=== PATIENT | female | born 1990 | race Caucasian/White ===

== ENCOUNTER 2018-07-09 09:13 | Outpatient (CLI) | payer MEDICAID, SELFPAY ==
[2018-07-09 09:57] LABS: Hemoglobin A1C 5.5 % (4.5-6.2)
[2018-07-09 10:34] LABS: ALT 18 U/L (12-78); AST 13 U/L (15-37); Albumin 3.6 g/dL (3.4-5.0); Alkaline Phosphatase 45 U/L (46-116); Anion Gap 10.3 mmol/L (3-11); BUN 9 mg/dL (7-18); Bilirubin, Direct 0.12 mg/dL (0.00-0.20); Bilirubin, Total 0.5 mg/dL (0.2-1.0); CO2 23.7 mmol/L (21.0-32.0); CREATININE 0.55 mg/dL (0.55-1.02); Calcium 8.9 mg/dL (8.5-10.1); Chloride 105 mmol/L (98-107); Glucose 96 mg/dL (70-100); Potassium 4.1 mmol/L (3.5-5.1); Sodium 139 mmol/L (136-145); Total Protein 7.1 g/dL (6.4-8.2)
[2018-07-09 10:46] LABS: Cholesterol 160 mg/dL (50-200); HDL Cholesterol 39 mg/dL (40-60); LDL CHOLESTEROL 101 mg/dL (<100); Triglyceride 78 mg/dL (30-150)
== END 2018-07-09 09:33 ==
PROVIDERS: PCP Family Medicine; Visit Provider Psychiatry & Neurology Child & Adolescent Psychiatry
DX: F71 Moderate intellectual disabilities (principal); Z79.899 Other long term (current) drug therapy; E78.5 Hyperlipidemia, unspecified; R73.9 Hyperglycemia, unspecified
CPT/HCPCS: 36415; 80048; 80061; 80076; 83721; 83036

== ENCOUNTER 2018-10-10 12:32 | Outpatient (REF) | payer MEDICAID, SELFPAY ==
[2018-10-13 13:42] LABS: Chlamydia Result Negative; GC Result Negative; Specimen Description URINE
== END 2018-10-10 12:52 ==
LOC: LBN 12:32
PROVIDERS: PCP Family Medicine; Visit Provider Nurse Practitioner Women's Health
DX: Z11.3 Encounter for screening for infections with a predominantly sexual mode of transmission (principal)
CPT/HCPCS: 87491; 87591

== ENCOUNTER 2019-01-01 10:59 | Outpatient (REF) | payer MEDICAID, SELFPAY | END 2019-01-01 11:19 | LOC: LBN 10:59 | PROVIDERS: PCP Family Medicine; Visit Provider Nurse Practitioner Family | DX: R35.0 Frequency of micturition (principal) | CPT/HCPCS: 87086 ==

== ENCOUNTER 2019-01-12 17:18 | Emergency (ER) | payer MEDICAID, SELFPAY ==
[2019-01-12 17:20] VITALS: BP 117/68; PULSE 83; RESP 16; TEMP 36.2; O2SAT 100
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
--- NOTE | 2019-01-12 17:52 | DI.RAD_ITS ---
SYMPTOM/DIAGNOSIS: TRAUMA, CONTINUED ANKLE PAIN RIGHT ANKLE: Three views. No priors No evidence of an acute or healing fracture or dislocation. The soft tissues are unremarkable. IMPRESSION: Negative examination.
--- NOTE | 2019-01-12 17:59 | ED.GENADUL_ITS ---
Discharge Plan Disposition Patient Disposition: HOME Condition: Stable Discharge Details Chief Complaint: Orthopedic Clinical Impression: Ankle pain Primary Care Provider: Debbie Hickey ED Provider: Laurence Muller Home Meds and New Rx's Prescriptions: Continued sertraline 50 mg Tablet 50 mg PO HS RF: 0 divalproex 500 MG tablet,delayed release (DR/EC) 500 mg PO DAILY RF: 0 risperidone [Risperdal] 1 MG tablet 1 mg PO BID RF: 0 atomoxetine [Strattera] 40 MG capsule 40 mg PO DAILY RF: 0 levonorgestrel-ethinyl estrad [Setlakin] 1 EACH tablets,dose pack,3 month 1 ea PO DAILY RF: 0 guanfacine 2 MG tablet extended release 24 hr 2 mg PO DAILY RF: 0 Discharge Instructions Instructions: Ankle Sprain (ED) Additional Instructions: Please return immediately to the emergency department if you develop any new or worsening symptoms or if you become otherwise concerned. It is extremely important that you make an appointment to be seen as soon as possible in follow- up for this visit by your primary care doctor. Referrals: Debbie Hickey [Primary Care Provider] - Discharge Data Discharge Date/Time-TO BE ENTERED AT DEPARTURE: 01/12/19 18:39 Medical Decision Making Leela Howard is a 28-year-old woman with a history of bipolar who presented to the emergency department complaining of right ankle pain has been persistent since she tripped on stairs 2 to 3 weeks ago. On exam patient is well and nontoxic appearing. Tenderness over the right medial and lateral malleoli without other bony tenderness of the right lower leg or foot, no edema of the lower extremity, no rash or skin changes. Concern for possible fracture versus sprain. Exam/history is not consistent with DVT, compartment syndrome, vascular injury, other acute emergent life/limb threatening pathology. Plan for x-rays. X-rays negative. Plan for Rolando wrap for comfort, patient walking about the emergency department without issue. I had a lengthy discussion with the patient regarding return to emergency department precautions, importance of outpatient follow-up with her PCP, and home care. Patient verbalized understanding of the plan was amenable. All questions were answered. Patient was discharged home with clear plan for outpatient follow-up. Medical Records Medical records reviewed: Yes I reviewed the patient's medical records. Imaging Data Radiologic Study: Attestation: I personally reviewed and interpreted this imaging study as follows: Radiologist's impression: EXAM: XR Right Ankle EXAM DATE/TIME: 01/12/2019 5:53 PM CLINICAL HISTORY: 28 years old, female; Right; Patient HX: Trauma 2 weeks ago, continued ankle pain; Additional info: Per PT: Medial and lateral pain TECHNIQUE: Imaging protocol: XR Right ankle. Views: 3 or more views. COMPARISON: No relevant prior studies available. FINDINGS: Bones/joints: No fracture or subluxation. Joints are well aligned. Soft tissues: Normal. IMPRESSION: No acute findings. HPI General Mode of arrival: ambulatory . Date/Time Provider Initiated Documentation: 01/12/19 17:23 . Limitations to Documentation: no limitations . Information obtained by: patient, RN notes reviewed and old records reviewed . HPI Narrative: Leela Howard is a 28-year-old woman with history of bipolar presenting to the emergency department with ankle pain. Patient reports that 2 or 3 weeks ago she was walking upstairs when she tripped and inverted her ankle. She reports that she has been having pain to the outside of her right ankle since the time of the injury, and has been walking with a limp. Patient reports that she did not seek medical care at the time, but came to the emergency department today because her pain seemed to be increasing. She denies any other injury at the time of the trauma, did not hit her head, no loss of consciousness. Patient reports that other than ankle pain that she has been feeling very well in her usual state of health. She denies any other symptoms. Has been eating and drinking as usual. Patient reports all of her pain is located over the medial and lateral malleoli of the right ankle. There is no other leg or foot pain. No skin wounds or skin changes. No edema. Related Data Home Medications Medication Instructions Recorded Confirmed atomoxetine [Strattera] 40 mg PO DAILY 01/27/18 01/12/19 divalproex 500 mg PO DAILY 01/27/18 01/12/19 guanfacine 2 mg PO DAILY 01/27/18 01/12/19 levonorgestrel-ethinyl estrad 1 ea PO DAILY 01/27/18 01/12/19 [Setlakin] risperidone [Risperdal] 1 mg PO BID 01/27/18 01/12/19 sertraline 50 mg PO HS 01/12/19 01/12/19 Allergies Allergy/AdvReac Type Severity Reaction Status Date / Time No Known Allergies Allergy Unverified 01/12/19 17:25 General Stated Complaint: Orthopedic GREGORIA: 4 Review of Systems Review of Systems Constitutional: denies fevers Eyes: denies eye pain ENT: denies facial pain, dental pain, sore throat Cardiovascular: denies chest pain, edema Respiratory: denies SOB, cough GI: denies abdominal pain, vomiting, diarrhea : denies flank pain MSK: denies back pain, neck pain, myalgias, reports right ankle pain Skin: denies rash, wound Neuro: denies headaches, numbness, weakness PFSH Medical History Bipolar 1 disorder (Acute 02/04/18) Contraception (Acute 02/04/18) Family History Mother No problems noted. Father No problems noted. Social History Smoking/Tobacco Use Status: Never Alcohol Intake: never Substance use type: does not use Do you feel safe in your relationship?: Yes Female Reproductive History Menstrual control method: pills Exam Narrative Exam Narrative: Constitutional: well and gff-gyqij-lqbzbizpp, pleasant, conversing normally HENT: head atraumatic/normocephalic/normal inspection, mucous membranes moist Eyes: conjunctiva normal, sclera normal, pupils 3mm b/l Neck: no stridor, normal ROM, trachea midline Resp: normal work of breathing Cardio: normal rate, normal rhythm Skin: warm, dry, normal color, no rash Neuro: alert, not altered, grossly non-focal, normal tone Ext: right ankle tender to palpation over medial and lateral malleoli, no tenderness of the proximal tibia or fibula, no posterior calf tenderness, able to range ankle though with some pain, no edema to the foot, ankle, or lower leg, heel, metatarsals nontender to palpation, DP pulse intact, brisk cap refill of the toes, normal sensation of the foot Psych: normal mood, normal affect, normal behavior Course Vital Signs Temperature 36.2 C L 01/12/19 17:20 Pulse 83 01/12/19 17:20 Respiratory Rate 16 01/12/19 17:20 Blood Pressure 117/68 01/12/19 17:20 Pulse Oximetry 100 05/27/19 17:20 Temperature 36.2 C L 01/12/19 17:20 Temperature Source Skin 01/12/19 17:20 Pulse 83 01/12/19 17:20 Respiratory Rate 16 01/12/19 17:20 Blood Pressure 117/68 01/12/19 17:20 Pulse Oximetry 100 01/12/19 17:20 Pain Level 9 01/12/19 17:20
--- NOTE | 2019-01-12 18:18 | DI.VRAD_ITS ---
EXAM: XR Right Ankle EXAM DATE/TIME: 01/12/2019 5:53 PM CLINICAL HISTORY: 28 years old, female; Right; Patient HX: Trauma 2 weeks ago, continued ankle pain; Additional info: Per PT: Medial and lateral pain TECHNIQUE: Imaging protocol: XR Right ankle. Views: 3 or more views. COMPARISON: No relevant prior studies available. FINDINGS: Bones/joints: No fracture or subluxation. Joints are well aligned. Soft tissues: Normal. IMPRESSION: No acute findings. Dictated and Authenticated by: Derrick Urbano MD. Ordering:CALVIN Dang MD
== END 2019-01-12 18:39 | disposition home or self-care (01) ==
PROVIDERS: Emergency Provider Student in an Organized Health Care Education/Training Program; PCP Family Medicine
DX: M25.571 Pain in right ankle and joints of right foot (principal)
CPT/HCPCS: 99283; 73610; 99282

== ENCOUNTER 2019-01-18 19:37 | Emergency (ER) | payer MEDICAID, SELFPAY ==
[2019-01-18 19:47] VITALS: BP 132/87; PULSE 90; RESP 18; TEMP 36.5; O2SAT 100
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
[2019-01-18 22:26] VITALS: BP 130/79; PULSE 98; RESP 18; TEMP 36.5; O2SAT 98
== END 2019-01-18 22:25 | disposition home or self-care (01) ==
PROVIDERS: Emergency Provider Physician Assistant; PCP Family Medicine
DX: F91.8 Other conduct disorders (principal); F31.9 Bipolar disorder, unspecified
CPT/HCPCS: 99284

== ENCOUNTER 2019-01-19 09:53 | Emergency (ER) | payer MEDICAID, SELFPAY ==
[2019-01-19 10:11] VITALS: BP 127/75; PULSE 85; RESP 20; TEMP 36.8; O2SAT 97
[2019-01-19 10:39] LABS: Bilirubin Negative (Negative); Blood Small (Negative); Clarity Clear; Glucose Negative (Negative); Ketones Trace mg/dL (Negative); Leukocyte Esterase Trace (Negative); Nitrite Negative (Negative); Specific Gravity 1.015 (1.005-1.025)
--- NOTE | 2019-01-19 10:52 | ED.GENADUL_ITS ---
Discharge Plan Disposition Patient Disposition: HOME Condition: Stable Discharge Details Chief Complaint: PsychEval Clinical Impression: Violent behavior, Finger pain, right Primary Care Provider: Debbie Hickey ED Provider: Melvin Schmidt Home Meds and New Rx's Prescriptions: Continued Nexplanon 68 mg implant 1 implant SBD ONCE Qty: 1 RF: 0 sertraline 50 mg Tablet 50 mg PO HS RF: 0 divalproex 500 MG tablet,delayed release (DR/EC) 500 mg PO DAILY RF: 0 risperidone [Risperdal] 1 MG tablet 1 mg PO BID RF: 0 atomoxetine [Strattera] 40 MG capsule 60 mg PO DAILY RF: 0 guanfacine 2 MG tablet extended release 24 hr 2 mg PO DAILY RF: 0 Discharge Instructions Additional Instructions: Please route return immediately to the emergency department if your child develo ps any new or worsening symptoms or if you become otherwise concerned. It is extremely important that you make an appointment for your child to be seen as soon as possible in follow-up for this visit by her psychiatrist and also by her primary care doctor. Your x-ray did not show any fracture. May stacy tape for comfort 3 to 5 days time. Apply ice to reduce discomfort Referrals: Debbie Hickey [Primary Care Provider] - Discharge Data Discharge Date/Time-TO BE ENTERED AT DEPARTURE: 01/19/19 17:19 Medical Decision Making <Laurence Muller MD - Last Filed: 01/20/19 20:52> Leela Howard is a 28-year-old woman with a history of bipolar disorder who presented to the emergency department after being evaluated last night, kervin for safety, and then throwing a chair at home . On exam patient is well and nontoxic appearing. She has somewhat pressured speech, alert and oriented x3, does give a different report of events as compared to her case management coordinator, denies throwing objects at staff. No SI or HI. Exam/history is not consistent with acute nonpsychiatric life-threatening medical pathology. I have concern that patient is a risk to her staff workers based on the report of her case management coordinator, and that she requires psychiatric evaluation. Plan for UA, urine preg, mental health eval, CPSO. Message left for patient's guardian to call back. Upreg neg per nursing. It is unclear to mental health worker whether patient's actions are behavioral versus psychiatric. At this time this delineation is unclear as we have not been able to reach the patient's guardian. Plan for patient to possibly go to [facility], which at this time I believe would be appropriate as she would receive psychiatric evaluation in their care. We have been unable to contact the patient's guardian. We will continue to monitor. director of product development have been attempting to call patient's guardian without success. Pt has been calm and cooperative, no complaints on reassessment. I spoke with Pt's mother over the phone, who is her guardian and makes all decisions for Pt. I relayed my concern that patient is possibly a risk to herself and to [facility] staff, given patient breaking multiple windows, patient throwing heavy objects at staff. Mom states that she would potentially consent to patient going to a [facility] facility, but she does not consent for patient to go to [place], and would prefer that she remain at home. Per mental health, the [facility] does not accept patient given her violent behavior. Per mental health team, likely the only inpatient facility that would accept patient is [place], which mom does not give her consent for. Given unclear nature of disposition, Aparna Randolph involved, who is in the ED assisting with coordinating the plan. Patient's case management coordinator now with plan for patient to go home with more staff members. They state that [facility] feels comfortable with this solution at this time, that staff is trained to handle violent behavior, and with more staff on hand this is the most appropriate disposition for the patient at this time. Patient's mother now present in the emergency department. I had a lengthy discussion with the patient's mother in the presence of patient's case management coordinator, and we discussed plan for patient to go home with more staff members. Patient's mom agrees with this plan, and feels comfortable with having further psychiatric assessment performed in the outpatient setting. Prior to discharge the usual return to emergency department precautions were discussed. Patient was discharged to home with clear plan for outpatient follow-up. All questions were answered. Prior to discharge, Pt noted that she had punched a wall two days ago, and has pain in her right 4th digit. On exam there is dorsal and volar ecchymosis and TTP over the PIP with superficial healing abrasion. No edema. FDS, FDP, and extensor function intact, FROM. Brisk cap refill, normal distal sensation. Hand otherwise atraumatic. Concern for contusion vs less likely fx. Tetanus <5 yrs ago. Plan for xray. Pt signed out to Dr. Schmidt at time of shift change with xray pending. Medical Records Medical records reviewed: Yes I reviewed the patient's medical records. Lab Data Lab results reviewed: Yes I reviewed the patient's lab results. Laboratory Tests Range/Units 01/19/19 01/19/19 10:25 10:25 Urine Color (Yellow) Yellow Urine Clarity Clear Urine pH (5-8) 7.0 Ur Specific [place] (1.005-1.025) 1.015 Urine Protein (Negative) mg/dL Negative Urine Ketones (Negative) mg/dL Trace H Urine Blood (Negative) Small H Urine Nitrite (Negative) Negative Urine Bilirubin (Negative) Negative Urine Urobilinogen (Up TO 0.2) EU/dL 1.0 H Ur Leukocyte Esterase (Negative) Trace H Urine RBC (0-2) 10-20 H Urine WBC (0-5) HPF 3-5 Ur Epithelial Cells (Negative) HPF Moderate Urine Crystals (Negative) HPF Negative Urine Bacteria (Negative) HPF Few Urine Casts (Negative) LPF Negative Urine Mucus (Negative) Negative Urine Other (Negative) Few renal Ur Culture Indicated? No/sq. contamination Urine Glucose (Negative) mg/dL Negative Urine Opiates Screen (Negative) Negative Urine Methadone Screen (Negative) Negative Ur Barbiturates Screen (Negative) Negative Ur Tricyclics Screen (Negative) Negative Ur Amphetamines Screen (Negative) Negative U Benzodiazepines Scrn (Negative) Negative Urine Cocaine Screen (Negative) Negative Ur THC Screen (Negative) Negative <Melvin Schmidt MD - Last Filed: 01/19/19 17:23> X-ray negative for acute fracture. Patient stable for discharge as previous plan. HPI <Laurence Muller MD - Last Filed: 01/20/19 20:52> General Mode of arrival: ambulatory . Date/Time Provider Initiated Documentation: 01/19/19 10:22 . Limitations to Documentation: no limitations . Information obtained by: patient, RN notes reviewed and old records reviewed . HPI Narrative: Leela Howard is a 28-year-old woman with history of bipolar disorder brought to the emergency department by her case management coordinator. The patient reports that she feels that her ex-boyfriend's mother is threatening her life, and has been telling her that she needs to harm herself and commit suicidal acts. The patient reports that she feels that her ex-boyfriend's mother encouraged her to harm herself in the past. Patient reports that she is very upset about this, but otherwise has no symptoms. She denies pain, fevers, suicidality, homicidality, any ingestion or attempt to harm herself. I spoke with the patient alone with nurse observing from outside the room . Patient is under the care of of [facility], and her guardian is her mother. I also discussed the patient with her case management coordinator that brought her to the emergency department today. They report that patient has not been in contact with her ex- boyfriend or with her ex-boyfriend's mother over the past 3 weeks, as she is not allowed to use the phone to contact them.. Over the past 3 weeks patient has had escalating dangerous behavior. They state that she has thrown chairs and other heavy objects including grates from the stove across the room. They report that she has broken several windows in the house. They state that she has been threatening staff (patient has 24/7 care providers to keep her safe). Patient was seen here last night for same and discharged home after patient contracted for safety. They report that since her discharge, patient again through a chair across the room. They state that patient is violent, threatening staff and they are having difficulty managing her in her home. Unclear if there have been recent med changes. Message left for mom to call back (Pt's guardian). Related Data Home Medications Medication Instructions Recorded Confirmed atomoxetine [Strattera] 60 mg PO DAILY 01/27/18 01/19/19 divalproex 500 mg PO DAILY 01/27/18 01/19/19 guanfacine 2 mg PO DAILY 01/27/18 01/19/19 risperidone [Risperdal] 1 mg PO BID 01/27/18 01/19/19 sertraline 50 mg PO HS 01/12/19 01/19/19 etonogestrel 68 mg subdermal 1 implant SBD ONCE #1 each 01/16/19 01/19/19 implant Previous Rx's Medication Instructions Recorded etonogestrel 68 mg subdermal 1 implant SBD ONCE #1 each 01/16/19 implant Allergies Allergy/AdvReac Type Severity Reaction Status Date / Time No Known Allergies Allergy Unverified 01/19/19 10:14 General Stated Complaint: PsychEval GREGORIA: 2 Review of Systems <Laurence Muller MD - Last Filed: 01/20/19 20:52> Review of Systems Constitutional: denies fevers Eyes: denies eye pain ENT: denies facial pain, dental pain, sore throat Cardiovascular: denies chest pain Respiratory: denies SOB, cough GI: denies abdominal pain, vomiting, diarrhea : denies flank pain MSK: denies back pain, neck pain, arthralgias, myalgias Skin: denies rash Neuro: denies headaches, numbness, weakness Psych: denies SI, HI, hallucinations PFSH <Laurence Muller MD - Last Filed: 01/20/19 20:52> Medical History Bipolar 1 disorder (Acute 02/04/18) Contraception (Acute 02/04/18) Family History Mother No problems noted. Father No problems noted. Social History Smoking/Tobacco Use Status: Never Alcohol Intake: never Drug use: Never Substance use type: does not use Do you feel safe at home: Yes Do you feel safe in your relationship?: Yes Female Reproductive History Menstrual control method: pills and implanted (Nexplanon implanted by Isa Lux NP ZRA=[id number] EXP=05/28/2021) Exam <Laurence Muller MD - Last Filed: 01/20/19 20:52> Narrative Exam Narrative: Constitutional: well and [id number], pleasant, somewhat pressure speech but otherwise conversing normally HENT: head atraumatic/normocephalic/normal inspection, mucous membranes moist Eyes: conjunctiva normal, sclera normal, pupils 3mm b/l Neck: no stridor, normal ROM, trachea midline Chest: normal inspection Resp: normal work of breathing, LCTAB Cardio: normal rate, normal rhythm, no murmur appreciated Skin: warm, dry, normal color, no rash Neuro: alert, not altered, grossly non-focal, normal tone, A&Ox3 Psych: normal mood, speech as above, normal behavior, no apparent hallucinations Course <Laurence Muller MD - Last Filed: 01/20/19 20:52> Vital Signs Temperature 36.8 C 01/19/19 10:11 Pulse 85 01/19/19 10:11 Respiratory Rate 20 01/19/19 10:11 Blood Pressure 127/75 01/19/19 10:11 Pulse Oximetry 97 01/19/19 10:11 Temperature 36.8 C 01/19/19 10:11 Temperature Source Temporal Artery Scan 01/19/19 10:11 Pulse 85 01/19/19 10:11 Respiratory Rate 20 01/19/19 10:11 Respiratory Effort Non-Labored 01/19/19 10:11 Blood Pressure 127/75 01/19/19 10:11 Blood Pressure Position Standing 01/19/19 10:11 Pulse Oximetry 97 01/19/19 10:11 Oxygen Delivery Method Room Air 01/19/19 10:11 Oxygen Flow Rate 0 01/19/19 10:11 Lab/Test Results Lab/Test Results: Laboratory Tests Range/Units 01/19/19 10:25 Urine Color (Yellow) Yellow Urine Clarity Clear Urine pH (5-8) 7.0 Ur Specific [place] (1.005-1.025) 1.015 Urine Protein (Negative) mg/dL Negative Urine Ketones (Negative) mg/dL Trace H Urine Blood (Negative) Small H Urine Nitrite (Negative) Negative Urine Bilirubin (Negative) Negative Urine Urobilinogen (Up TO 0.2) EU/dL 1.0 H Ur Leukocyte Esterase (Negative) Trace H Urine Glucose (Negative) mg/dL Negative Sign Out <Laurence Muller MD - Last Filed: 01/20/19 20:52> Sign Out Data: Sign Out Comment: Patient signed out to Dr. Schmidt at time of shift change with finger x-ray pending, anticipate discharge to home. Last updated by Laurence Muller MD at 01/19/19 16:54
[2019-01-19 10:56] LABS: Bacteria Few HPF (Negative); C & S Indicated? No/Sq. Contamination; Casts Negative LPF (Negative); Crystals Negative HPF (Negative); Epithelial Cells Moderate HPF (Negative); Mucus Negative (Negative); Other Cells Few Renal (Negative)
[2019-01-19 11:02] LABS: *AMPHETAMINES SCREEN URINE Negative (Negative); *BARBITURATES SCREEN URINE Negative (Negative); *BENZODIAZEPINES SCREEN URINE Negative (Negative); Cannabinoids THC Negative (Negative); Cocaine Screen,Urine Negative (Negative); METHADONE URINE SCREEN Negative (Negative); OPIATES URINE SCREEN Negative (Negative)
[2019-01-19 11:09] LABS: Tricyclic Antidepressants Negative (Negative)
--- NOTE | 2019-01-19 12:41 | PDOC.ERCMPRO ---
Care Management Progress Note Leela presents to the [facility] Emergency Department for the third time in less than a week for ongoing physical aggression, property destruction, threats of self harm, and agitation. Per staff reports, patient at baseline presents as hyper and manic. 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 She was adopted at a young age and moved to the [place], [place] area with her family in 2003. She has experienced recent primary staff changes-notably her longterm auto service writer. She resides in her own apartment with real time trader care providers through [facility] (currently 2:1 ratio). CM met with primary staff and crisis staff who both showed signs of residual trauma/burn out as noted by pressured speech, verbalized exhaustion, unregulated responses, deteriorating affect management. Steph [facility] reports Leela is not voluntary for placement and does not meet criteria for involuntary. Leela's mother and guardian Dianne is not agreeable to Leela being placed at . Aparna, Dianne Dolan, and two [facility] casey saw operator met to discuss planning. Dianne opted to bring Leela home. The plan would have likely been to discharge Leela back to her apartment due to criteria not being met for psychiatric stabilization. [facility] feeling [facility] could benefit from observation and medication recommendations but that her mother and guardian historically is not willing to permit Leela to take medications. [facility] reported stated that Leela was too aggressive for their mileu. Cindy Gould, Museum Host/Hostess reports Amador Bear; IDDS Bankruptcy Judge stated services would resume for Leela in the community upon discharge. When his consult was requested he reportedly told Cindy PLUNKETT was tasked with managing Leela in the community as the DA and no further consultation was required; disposition was up to [facility] crisis and [facility]. Elisbaet Lee IDDS cab worker was present as well. Elisabet and Cindy reported their presence escalated Leela's behavior.
--- NOTE | 2019-01-19 14:32 | CMPROGNOTE_ITS ---
Care Management Progress Note Leela presents to the [facility] Emergency Department for the third time in less than a week for ongoing physical aggression, property destruction, threats of self harm, and agitation. Per staff reports, patient at baseline presents as hyper and manic. 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 She was adopted at a young age and moved to the [place], [place] area with her family in 2003. She has experienced recent primary staff changes-notably her [facility] community service aide. She resides in her own apartment with multimedia services coordinator care providers through [facility] (currently 2:1 ratio). CM met with primary staff and crisis staff who both showed signs of residual trauma/burn out as noted by pressured speech, verbalized exhaustion, unregulated responses, deteriorating affect management. Steph [facility] reports Leela is not voluntary for placement and does not meet criteria for involuntary. Leela's mother and guardian Dianne is not agreeable to Leela being placed at . Aparna, Dianne Dolan, and two [facility] case management social worker met to discuss planning. Dianne opted to bring Leela home. The plan would have likely been to discharge Leela back to her apartment due to criteria not being met for psychiatric stabilization. [facility] feeling [facility] could benefit from observation and medication recommendations but that her mother and guardian historically is not willing to permit Leela to take medications. [facility] reported stated that Leela was too aggressive for their mileu. Cindy Gould, Healthcare Science Specialist reports Amador Bear; IDDS Diesel Locomotive Crane Operator stated services would resume for Leela in the community upon discharge. When his consult was requested he reportedly told Cindy PLUNKETT was tasked with managing Leela in the community as the DA and no further consultation was required; disposition was up to [facility] crisis and [facility]. Elisabet Lee ID[facility] green end worker was present as well. Elisabet and Cindy reported their presence escalated Leela's behavior.
--- NOTE | 2019-01-19 16:51 | DI.RAD_ITS ---
SYMPTOM/DIAGNOSIS: TRAUMA, FINGER PAIN RIGHT RING FINGER: Three views were obtained. No fracture is seen.
--- NOTE | 2019-01-19 17:13 | DI.VRAD_ITS ---
EXAM: XR Right Finger(s) EXAM DATE/TIME: 01/19/2019 4:53 PM CLINICAL HISTORY: 28 years old, female; Finger(s); Right; Patient HX: Trauma, finger pain; RT ring finger TECHNIQUE: Imaging protocol: XR Right fingers. Views: Minimum 2 views. COMPARISON: No relevant prior studies available. FINDINGS: Bones/joints: No recent fracture or dislocation is identified. Soft tissues: There is mild soft tissue swelling present about the proximal interphalangeal joint. IMPRESSION: Mild soft tissue swelling. No recent fracture or dislocation is identified. Dictated and Authenticated by: Sharad Burns MD. Ordering:CALVIN Dang MD
[2019-01-19 17:29] VITALS: PULSE 85; RESP 20; TEMP 36.8; O2SAT 97
== END 2019-01-19 17:19 | disposition home or self-care (01) ==
PROVIDERS: Student in an Organized Health Care Education/Training Program; Emergency Provider Emergency Medicine; PCP Family Medicine
DX: R46.4 Slowness and poor responsiveness (principal); F31.9 Bipolar disorder, unspecified; M79.641 Pain in right hand
CPT/HCPCS: 80307; 81025; 99283; 73140; 81003; 81015; 99282

== ENCOUNTER 2019-01-23 18:05 | Emergency (ER) | payer MEDICAID, SELFPAY ==
[2019-01-23 18:08] VITALS: BP 116/59; PULSE 80; RESP 16; TEMP 36.7; O2SAT 97
--- NOTE | 2019-01-23 18:52 | W.ED.GENAD ---
Discharge Plan Disposition Patient Disposition: HOME Condition: Good Discharge Details Chief Complaint: Orthopedic Clinical Impression: Contusion of right wrist Primary Care Provider: Debbie Hickey ED Provider: Trina Melgar Home Meds and New Rx's Prescriptions: Continued Nexplanon 68 mg implant 1 implant SBD ONCE Qty: 1 RF: 0 sertraline 50 mg Tablet 50 mg PO HS RF: 0 divalproex 500 MG tablet,delayed release (DR/EC) 500 mg PO DAILY RF: 0 risperidone [Risperdal] 1 MG tablet 1 mg PO BID RF: 0 atomoxetine [Strattera] 40 MG capsule 60 mg PO DAILY RF: 0 guanfacine 2 MG tablet extended release 24 hr 2 mg PO DAILY RF: 0 Discharge Instructions Instructions: Contusion in Adults (ED) Additional Instructions: Encourage rest, ice, elevation. Tylenol and ibuprofen as needed for discomfort. Please follow-up with primary care if not improving over the next 2 weeks. Please continue with Rolando wrap for pain persist. If you develop new or worsening symptoms please seek care urgently once again. Referrals: Debbie Hickey [Primary Care Provider] - Discharge Data Discharge Date/Time-TO BE ENTERED AT DEPARTURE: 01/23/19 19:53 Medical Decision Making Patient presents today with chief complaint of right wrist pain. On exam, she has some ecchymosis over the ulnar side of the wrist. Full range of motion. No ligamentous abnormality. No sensation deficit. No deformity. Range of motion is intact. Plan to obtain x-ray to evaluate for possible bony abnormality. X-ray reviewed by radiologist. Advised no acute findings. He did advise follow-up if there is snuffbox tenderness which none was noted on exam. Plan to discharge patient with Rolando wrap and encouraged rice. XR reviewed by radiologist: FINDINGS: Bones/joints: No suspicious osseous lytic or blastic lesion. No discrete or displaced fracture. No joint dislocation. Soft tissues: No focal abnormality. IMPRESSION: No acute findings. If there is focal snuffbox tenderness, consider followup radiographs in 10-14 days to evaluate for occult fracture. Patient is not having any discomfort over the snuffbox. Advised this is a contusion with findings of ecchymosis with history. Encourage rest, ice, elevation. Tylenol and/or ibuprofen as needed for discomfort. Rolando wrap was applied to help with discomfort and the swelling that may ensue. Advise follow-up with primary care if not improving over the next 2 weeks. She will seek care urgently once again with new or worsening symptoms. All of her questions and concerns were addressed and she is in agreement with this plan. HPI General Mode of arrival: ambulatory. Date/Time Provider Initiated Documentation: 01/23/19 18:17. Limitations to Documentation: no limitations. Information obtained by: patient and RN notes reviewed. HPI Narrative: Patient 28-year-old [id number] female presenting today with chief complaint of right wrist pain. She reports that she initially injured this several years ago. Has had intermittent injury since then. States that a few weeks ago, she punched a wall and suffered a hyperextension injury. Since that time has had intermittent discomfort made worse today from hitting a table. States that when she struck her arm against the table, she suffered contusion with ecchymosis to the ulnar side of the distal forearm. No altered sensation. Denies other injury the time of the incident. Patient is full range of motion. She is also concerned that she hears a clicking with forced flexion of the wrist. Related Data Home Medications Medication Instructions Recorded Confirmed atomoxetine [Strattera] 60 mg PO DAILY 01/27/18 01/23/19 divalproex 500 mg PO DAILY 01/27/18 01/23/19 guanfacine 2 mg PO DAILY 01/27/18 01/23/19 risperidone [Risperdal] 1 mg PO BID 01/27/18 01/23/19 sertraline 50 mg PO HS 01/12/19 01/23/19 etonogestrel 68 mg subdermal 1 implant SBD ONCE #1 each 01/16/19 01/23/19 implant Previous Rx's Medication Instructions Recorded etonogestrel 68 mg subdermal 1 implant SBD ONCE #1 each 01/16/19 implant Allergies Allergy/AdvReac Type Severity Reaction Status Date / Time No Known Allergies Allergy Unverified 01/23/19 18:12 General Stated Complaint: Orthopedic GREGORIA: 4 Review of Systems Constitutional Reports as per HPI, Denies chills, Denies fever(s), Denies headache(s) and Denies weakness ENT Denies headache(s) Cardiovascular Reports as per HPI Respiratory Reports as per HPI and Denies cough Musculoskeletal Reports as per HPI and Denies tingling Integumentary/Breasts Reports as per HPI, Denies rash and Denies wounds Neurologic Reports as per HPI, Denies headache(s), Denies tingling, Denies paresthesias and Denies weakness [facility] Medical History Bipolar 1 disorder (Acute 02/04/18) Contraception (Acute 02/04/18) Family History Mother No problems noted. Father No problems noted. Social History Smoking/Tobacco Use Status: Never Alcohol Intake: never Drug use: Never Substance use type: does not use Do you feel safe at home: Yes Do you feel safe in your relationship?: Yes Female Reproductive History Menstrual control method: pills and implanted (Nexplanon implanted by Isa Lux NP BEG=[id number] EXP=05/28/2021) Exam Const General: cooperative, healthy appearing, comfortable, no acute distress, well developed and well groomed Nutritional Appearance: average body habitus and well nourished Orientation: alert and awake Resp Effort & Inspection: normal respiratory effort, able to speak in complete sentences and no respiratory distress Cardio Rate: regular rate Rhythm: regular rhythm Skin General skin exam: no rashes or lesions noted Lesions: no lesions Rashes: no rashes Trauma: no lacerations or abrasions Neuro General: alert and awake Cognition: normal cognition Speech: speech normal Gait: normal gait Motor: muscle tone normal throughout Sensory Exam: no sensory deficits noted Extrem Right upper extremity: normal to inspection, full ROM, normal capillary refill, no joint enlargement, elbow/forearm Details: normal to inspection and normal ROM; no tenderness and no swelling, wrist Details: tenderness Location: of the distal ulna; not of the anatomic snuffbox, normal ROM, ecchymosis (small area of ecchymosis ulnar side) and normal vascular exam; no swelling, no unusual warmth, no crepitus and no deformity and hand Details: normal to inspection, normal capillary refill, neuromotor exam normal, neurosensory exam normal and tendon exam normal; no tenderness Psych Appearance: grossly normal and well kempt Mental Status: mental status grossly normal Speech and Movement: speech and movement normal Course Vital Signs Temperature 36.7 C 01/23/19 18:08 Pulse 80 01/23/19 18:08 Respiratory Rate 16 01/23/19 18:08 Blood Pressure 116/59 L 01/23/19 18:08 Pulse Oximetry 97 01/23/19 18:08 Temperature 36.7 C 01/23/19 18:08 Temperature Source Skin 01/23/19 18:08 Pulse 80 01/23/19 18:08 Respiratory Rate 16 01/23/19 18:08 Respiratory Effort 01/23/19 18:13 Blood Pressure 116/59 L 01/23/19 18:08 Blood Pressure Position Sitting 01/23/19 18:08 Pulse Oximetry 97 01/23/19 18:08 Pain Level 8 01/23/19 18:14
--- NOTE | 2019-01-23 18:57 | ED.GENADUL_ITS ---
Discharge Plan Disposition Patient Disposition: HOME Condition: Good Discharge Details Chief Complaint: Orthopedic Clinical Impression: Contusion of right wrist Primary Care Provider: Debbie Hickey ED Provider: Trina Melgar Home Meds and New Rx's Prescriptions: Continued Nexplanon 68 mg implant 1 implant SBD ONCE Qty: 1 RF: 0 sertraline 50 mg Tablet 50 mg PO HS RF: 0 divalproex 500 MG tablet,delayed release (DR/EC) 500 mg PO DAILY RF: 0 risperidone [Risperdal] 1 MG tablet 1 mg PO BID RF: 0 atomoxetine [Strattera] 40 MG capsule 60 mg PO DAILY RF: 0 guanfacine 2 MG tablet extended release 24 hr 2 mg PO DAILY RF: 0 Discharge Instructions Instructions: Contusion in Adults (ED) Additional Instructions: Encourage rest, ice, elevation. Tylenol and ibuprofen as needed for discomfort. Please follow-up with primary care if not improving over the next 2 weeks. Please continue with Rolando wrap for pain persist. If you develop new or worsening symptoms please seek care urgently once again. Referrals: Debbie Hickey [Primary Care Provider] - Discharge Data Discharge Date/Time-TO BE ENTERED AT DEPARTURE: 01/23/19 19:53 Medical Decision Making Patient presents today with chief complaint of right wrist pain. On exam, she has some ecchymosis over the ulnar side of the wrist. Full range of motion. No ligamentous abnormality. No sensation deficit. No deformity. Range of motion is intact. Plan to obtain x-ray to evaluate for possible bony abnormality. X- ray reviewed by radiologist. Advised no acute findings. He did advise follow- up if there is snuffbox tenderness which none was noted on exam. Plan to discharge patient with Rolando wrap and encouraged rice. XR reviewed by radiologist: FINDINGS: Bones/joints: No suspicious osseous lytic or blastic lesion. No discrete or displaced fracture. No joint dislocation. Soft tissues: No focal abnormality. IMPRESSION: No acute findings. If there is focal snuffbox tenderness, consider followup radiographs in 10-14 days to evaluate for occult fracture. Patient is not having any discomfort over the snuffbox. Advised this is a contusion with findings of ecchymosis with history. Encourage rest, ice, elevation. Tylenol and/or ibuprofen as needed for discomfort. Rolando wrap was applied to help with discomfort and the swelling that may ensue. Advise follow- up with primary care if not improving over the next 2 weeks. She will seek care urgently once again with new or worsening symptoms. All of her questions and concerns were addressed and she is in agreement with this plan. HPI General Mode of arrival: ambulatory . Date/Time Provider Initiated Documentation: 01/23/19 18:17 . Limitations to Documentation: no limitations . Information obtained by: patient and RN notes reviewed . HPI Narrative: Patient 28-year-old [id number] female presenting today with chief complaint of right wrist pain. She reports that she initially injured this several years ago. Has had intermittent injury since then. States that a few weeks ago, she punched a wall and suffered a hyperextension injury. Since that time has had intermittent discomfort made worse today from hitting a table. States that when she struck her arm against the table, she suffered contusion with ecchymosis to the ulnar side of the distal forearm. No altered sensation. Denies other injury the time of the incident. Patient is full range of motion. She is also concerned that she hears a clicking with forced flexion of the wrist. Related Data Home Medications Medication Instructions Recorded Confirmed atomoxetine [Strattera] 60 mg PO DAILY 01/27/18 01/23/19 divalproex 500 mg PO DAILY 01/27/18 01/23/19 guanfacine 2 mg PO DAILY 01/27/18 01/23/19 risperidone [Risperdal] 1 mg PO BID 01/27/18 01/23/19 sertraline 50 mg PO HS 01/12/19 01/23/19 etonogestrel 68 mg subdermal 1 implant SBD ONCE #1 each 01/16/19 01/23/19 implant Previous Rx's Medication Instructions Recorded etonogestrel 68 mg subdermal 1 implant SBD ONCE #1 each 01/16/19 implant Allergies Allergy/AdvReac Type Severity Reaction Status Date / Time No Known Allergies Allergy Unverified 01/23/19 18:12 General Stated Complaint: Orthopedic GREGORIA: 4 Review of Systems Constitutional Reports as per HPI, Denies chills, Denies fever(s), Denies headache(s) and Denies weakness ENT Denies headache(s) Cardiovascular Reports as per HPI Respiratory Reports as per HPI and Denies cough Musculoskeletal Reports as per HPI and Denies tingling Integumentary/Breasts Reports as per HPI, Denies rash and Denies wounds Neurologic Reports as per HPI, Denies headache(s), Denies tingling, Denies paresthesias and Denies weakness [facility] Medical History Bipolar 1 disorder (Acute 02/04/18) Contraception (Acute 02/04/18) Family History Mother No problems noted. Father No problems noted. Social History Smoking/Tobacco Use Status: Never Alcohol Intake: never Drug use: Never Substance use type: does not use Do you feel safe at home: Yes Do you feel safe in your relationship?: Yes Female Reproductive History Menstrual control method: pills and implanted (Nexplanon implanted by Isa Lux NP NHP=[id number] EXP=05/28/2021) Exam Const General: cooperative, healthy appearing, comfortable, no acute distress, well developed and well groomed Nutritional Appearance: average body habitus and well nourished Orientation: alert and awake Resp Effort & Inspection: normal respiratory effort, able to speak in complete sentences and no respiratory distress Cardio Rate: regular rate Rhythm: regular rhythm Skin General skin exam: no rashes or lesions noted Lesions: no lesions Rashes: no rashes Trauma: no lacerations or abrasions Neuro General: alert and awake Cognition: normal cognition Speech: speech normal Gait: normal gait Motor: muscle tone normal throughout Sensory Exam: no sensory deficits noted Extrem Right upper extremity: normal to inspection, full ROM, normal capillary refill, no joint enlargement, elbow/forearm Details: normal to inspection and normal ROM; no tenderness and no swelling, wrist Details: tenderness Location: of the distal ulna; not of the anatomic snuffbox, normal ROM, ecchymosis (small area of ecchymosis ulnar side) and normal vascular exam; no swelling, no unusual warmth, no crepitus and no deformity and hand Details: normal to inspection, normal capillary refill, neuromotor exam normal, neurosensory exam normal and tendon exam normal; no tenderness Psych Appearance: grossly normal and well kempt Mental Status: mental status grossly normal Speech and Movement: speech and movement normal Course Vital Signs Temperature 36.7 C 01/23/19 18:08 Pulse 80 01/23/19 18:08 Respiratory Rate 16 01/23/19 18:08 Blood Pressure 116/59 L 01/23/19 18:08 Pulse Oximetry 97 01/23/19 18:08 Temperature 36.7 C 01/23/19 18:08 Temperature Source Skin 01/23/19 18:08 Pulse 80 01/23/19 18:08 Respiratory Rate 16 01/23/19 18:08 Respiratory Effort 01/23/19 18:13 Blood Pressure 116/59 L 01/23/19 18:08 Blood Pressure Position Sitting 01/23/19 18:08 Pulse Oximetry 97 01/23/19 18:08 Pain Level 8 01/23/19 18:14
--- NOTE | 2019-01-23 19:13 | DI.RAD_ITS ---
SYMPTOM/DIAGNOSIS: TRAUMA RIGHT WRIST: Four views. Comparison is made with 01/19/19. No acute fracture or dislocation is identified. The soft tissues are unremarkable. IMPRESSION: No acute fracture or dislocation. Follow up as clinically appropriate.
--- NOTE | 2019-01-23 19:27 | DI.VRAD_ITS ---
EXAM: XR Right Wrist EXAM DATE/TIME: 01/23/2019 7:15 PM CLINICAL HISTORY: 28 years old, female; Pain; Wrist; Right; Patient HX: Trauma TECHNIQUE: Imaging protocol: XR Right wrist. Views: 3 or more views. COMPARISON: CR XR finger RT ring 01/19/2019 5:02 PM FINDINGS: Bones/joints: No suspicious osseous lytic or blastic lesion. No discrete or displaced fracture. No joint dislocation. Soft tissues: No focal abnormality. IMPRESSION: No acute findings. If there is focal snuffbox tenderness, consider followup radiographs in 10-14 days to evaluate for occult fracture. Dictated and Authenticated by: Dean Wolf MD. Ordering:GABBY Mena MD
== END 2019-01-23 19:53 | disposition home or self-care (01) ==
PROVIDERS: Emergency Provider Physician Assistant; PCP Family Medicine
DX: S60.211A Contusion of right wrist, initial encounter (principal); W22.8XXA Striking against or struck by other objects, initial encounter
CPT/HCPCS: 99283; 73110; 99282

== ENCOUNTER 2019-02-08 12:48 | Emergency (ER) | payer MEDICAID, SELFPAY ==
[2019-02-08 12:59] VITALS: BP 124/82; PULSE 101; RESP 16; TEMP 36.6; O2SAT 98
[2019-02-08 13:17] LABS: Bilirubin Negative (Negative); Blood Small (Negative); Clarity Clear; Glucose Negative (Negative); Ketones Negative (Negative); Leukocyte Esterase Trace (Negative); Nitrite Negative (Negative); Specific Gravity 1.025 (1.005-1.025); pH 6.5 (5-8)
[2019-02-08 13:29] LABS: Bacteria Moderate HPF (Negative); Casts Negative LPF (Negative); Crystals Negative HPF (Negative); Epithelial Cells Moderate HPF (Negative); Mucus Moderate (Negative); Other Cells Moderate Renal (Negative)
[2019-02-08 13:30] LABS: C & S Indicated? No/Sq. Contamination
--- NOTE | 2019-02-08 13:34 | NUR.NOTE ---
Nursing Note: Pt resting in stretcher, is calm and cooperative at this time. MD Muller and RN at bedside Denies homicidal and suicidal ideation
[2019-02-08 13:37] LABS: *AMPHETAMINES SCREEN URINE Negative (Negative); *BARBITURATES SCREEN URINE Negative (Negative); *BENZODIAZEPINES SCREEN URINE Negative (Negative); Cannabinoids THC Negative (Negative); Cocaine Screen,Urine Negative (Negative); METHADONE URINE SCREEN Negative (Negative); OPIATES URINE SCREEN Negative (Negative)
[2019-02-08 13:38] LABS: Tricyclic Antidepressants Negative (Negative)
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
--- NOTE | 2019-02-08 14:18 | NUR.NOTE ---
Nursing Note: MD Muller consulted, states that she does not need a safety and health consultant at this time
--- NOTE | 2019-02-08 14:48 | W.ED.GENAD ---
Discharge Plan Disposition Patient Disposition: HOME Discharge Details Chief Complaint: PsychEval Clinical Impression: Anxiety, Deliberate self-cutting Primary Care Provider: Debbie Hickey ED Provider: Carmelo Muller Home Meds and New Rx's Prescriptions: Continued Nexplanon 68 mg implant 1 implant SBD ONCE Qty: 1 RF: 0 sertraline 50 mg Tablet 50 mg PO HS RF: 0 divalproex 500 MG tablet,delayed release (DR/EC) 500 mg PO DAILY RF: 0 risperidone [Risperdal] 1 MG tablet 1 mg PO BID RF: 0 atomoxetine [Strattera] 40 MG capsule 60 mg PO DAILY RF: 0 guanfacine 2 MG tablet extended release 24 hr 2 mg PO DAILY RF: 0 Discharge Instructions Instructions: Anxiety (ED) Additional Instructions: Please follow-up with [facility] human services. Please contact your primary care physician to arrange follow-up. Return to the ER for any worsening or new concerning symptoms. Referrals: [facility] [Provider Group] Debbie Hickey [Primary Care Provider] - Discharge Data Discharge Date/Time-TO BE ENTERED AT DEPARTURE: 02/08/19 15:09 Medical Decision Making 28-year-old female with history of bipolar disorder, here after argument with her caseworkers with intentional cutting of her left wrist. Left wrist wounds are superficial abrasions. Patient is not suicidal. She is not depressed. She does note that she has had some anxiety recently and is frustrated with caseworkers and with her boyfriend who she has had an argument with. She has no hallucinations and no homicidal thoughts. Caseworkers are here with the patient and requested that crisis screening be performed. I screened the patient and find no concern for crisis evaluation. Crisis screener was consulted to evaluate the patient and agrees. Labs reviewed and contaminated urinalysis. She has no symptoms of UTI. Urine negative. Patient desires discharge. She is agreeable to going back to retirement with her mother driving her. Mother is agreeable with this plan. Patient was encouraged to return to the ED immediately should she have any worsening or new concerning symptoms. HPI General Mode of arrival: EMS (police). Date/Time Provider Initiated Documentation: 02/08/19 13:06. Limitations to Documentation: no limitations. Information obtained by: patient. HPI Narrative: 28-year-old female with history of bipolar disorder, who lives in a retirement, here today after she had an argument with her caseworkers. Caseworkers are concerned that she expressed suicidality and attempted to harm herself. Patient admits that she was quite upset. She specifically notes she had an argument with the caseworkers. She is upset about recent argument with her boyfriend. She denies suicidality. No homicidality. She does admit that she attempted to cut her left wrist with a rock. She notes that she was not doing this to kill herself but for attention. She denies any other complaint at this time. She notes that she does not want to go with caseworkers today and would prefer to go with her mother. She requested we contact her mother. Related Data Home Medications Medication Instructions Recorded Confirmed atomoxetine [Strattera] 60 mg PO DAILY 01/27/18 02/08/19 divalproex 500 mg PO DAILY 01/27/18 02/08/19 guanfacine 2 mg PO DAILY 01/27/18 02/08/19 risperidone [Risperdal] 1 mg PO BID 01/27/18 02/08/19 sertraline 50 mg PO HS 01/12/19 02/08/19 etonogestrel 68 mg subdermal 1 implant SBD ONCE #1 each 01/16/19 02/08/19 implant Previous Rx's Medication Instructions Recorded etonogestrel 68 mg subdermal 1 implant SBD ONCE #1 each 01/16/19 implant Allergies Allergy/AdvReac Type Severity Reaction Status Date / Time No Known Allergies Allergy Unverified 01/23/19 18:12 General Stated Complaint: PsychEval GREGORIA: 2 Review of Systems Constitutional Denies fever(s) Gastrointestinal Denies abdominal pain Psychiatric Reports as per HPI, Reports anxiety, Denies auditory hallucinations, Denies hopelessness, Reports irritability, Denies panic attacks, Denies paranoia, Denies visual hallucinations, Denies hallucinations, Denies homicidal ideation and Denies suicidal ideation [facility] Medical History Bipolar 1 disorder (Acute 02/04/18) Contraception (Acute 02/04/18) Family History Mother No problems noted. Father No problems noted. Social History Smoking/Tobacco Use Status: Never Alcohol Intake: never Drug use: Never Substance use type: does not use Do you feel safe at home: No Do you feel safe in your relationship?: No Female Reproductive History Menstrual control method: pills and implanted (Nexplanon implanted by Isa Lux NP IJU=[id number] EXP=05/28/2021) Exam Const General: cooperative and no acute distress HENMT Head: normocephalic and atraumatic Mouth: moist mucous membranes Eyes Conjunctivae: normal conjunctivae Sclera: normal sclerae Neck Neck: trachea midline and supple Resp Auscultation: clear to auscultation bilaterally, no rales, no rhonchi and no wheezes Cardio Jugular venous pressure: no JVD Rate: regular rate and not tachycardic Rhythm: regular rhythm GI Palpation: soft, not firm, no guarding, no masses, not rigid and nontender Skin Trauma: abrasion (superficial left forearm with no bleeding) Wounds: wounds noted Neuro General: alert, awake, oriented x3 and tone normal Extrem General: no edema Psych Appearance: grossly normal Mental Status: mental status grossly normal Speech and Movement: speech and movement normal, not agitated, speech clear and speech not pressured Mood: not paranoid, not labile and No angry Affect: normal affect Attitude: cooperative Thought Content: no delusions, no hallucinations, no homicidality and suicidality Judgment: judgment good Course Vital Signs Temperature 36.6 C 02/08/19 12:59 Pulse 101 H 02/08/19 12:59 Respiratory Rate 16 02/08/19 12:59 Blood Pressure 124/82 02/08/19 12:59 Pulse Oximetry 98 02/08/19 12:59 Temperature 36.6 C 02/08/19 12:59 Temperature Source Temporal Artery Scan 02/08/19 12:59 Pulse 101 H 02/08/19 12:59 Respiratory Rate 16 02/08/19 12:59 Respiratory Effort Non-Labored 02/08/19 13:03 Blood Pressure 124/82 02/08/19 12:59 Blood Pressure Position Sitting 02/08/19 12:59 Pulse Oximetry 98 02/08/19 12:59 Oxygen Delivery Method Room Air 02/08/19 12:59 Oxygen Flow Rate 0 02/08/19 12:59 Pain Level 0 02/08/19 12:59 Lab/Test Results Lab/Test Results: Laboratory Tests Range/Units 02/08/19 02/08/19 02/08/19 13:06 13:06 13:06 WBC Cancelled RBC Cancelled Hgb Cancelled Hct Cancelled MCV Cancelled MCH Cancelled MCHC Cancelled RDW Cancelled Plt Count Cancelled MPV Cancelled Immature Gran % Cancelled Neutrophils % Cancelled Band Neutrophils % Cancelled Lymphocytes % Cancelled Atypical Lymphs % Cancelled Monocytes % Cancelled Eosinophils % Cancelled Basophils % Cancelled Metamyelocytes % Cancelled Myelocytes % Cancelled Promyelocytes % Cancelled Absolute Neutrophils Cancelled Absolute Lymphocytes Cancelled Absolute Monocytes Cancelled Absolute Eosinophils Cancelled Absolute Basophils Cancelled Nucleated RBCs Cancelled Differential Comment Cancelled Other Cell Type Cancelled RBC Morphology Cancelled Polychromasia Cancelled Hypochromasia Cancelled Poikilocytosis Cancelled Basophilic Stippling Cancelled Anisocytosis Cancelled Microcytosis Cancelled Macrocytosis Cancelled Spherocytes Cancelled Target Cells Cancelled Tear Drop Cells Cancelled Ovalocytes Cancelled Stomatocytes Cancelled [place] Bodies Cancelled [place] Cells Cancelled Acanthocytes (Spur) Cancelled Schistocytes Cancelled Sodium Cancelled Potassium Cancelled Chloride Cancelled Carbon Dioxide Cancelled Anion Gap Cancelled BUN Cancelled Creatinine Cancelled Estimated GFR/1.73 m2 Cancelled Glucose Cancelled Calcium Cancelled Total Bilirubin Cancelled AST Cancelled ALT Cancelled Alkaline Phosphatase Cancelled Total Protein Cancelled Albumin Cancelled TSH Cancelled Urine Color (Yellow) Urine Clarity Urine pH (5-8) Ur Specific [place] (1.005-1.025) Urine Protein (Negative) mg/dL Urine Ketones (Negative) mg/dL Urine Blood (Negative) Urine Nitrite (Negative) Urine Bilirubin (Negative) Urine Urobilinogen (Up TO 0.2) EU/dL Ur Leukocyte Esterase (Negative) Urine RBC (0-2) Urine WBC (0-5) HPF Ur Epithelial Cells (Negative) HPF Urine Crystals (Negative) HPF Urine Bacteria (Negative) HPF Urine Casts (Negative) LPF Urine Mucus (Negative) Urine Other (Negative) Ur Culture Indicated? Urine Glucose (Negative) mg/dL Salicylates Cancelled Urine Opiates Screen (Negative) Urine Methadone Screen (Negative) Acetaminophen Cancelled Ur Barbiturates Screen (Negative) Ur Tricyclics Screen (Negative) Ur Amphetamines Screen (Negative) U Benzodiazepines Scrn (Negative) Urine Cocaine Screen (Negative) Ur THC Screen (Negative) Ethyl Alcohol Cancelled Range/Units 02/08/19 02/08/19 13:08 13:08 WBC RBC Hgb Hct MCV MCH MCHC RDW Plt Count MPV Immature Gran % Neutrophils % Band Neutrophils % Lymphocytes % Atypical Lymphs % Monocytes % Eosinophils % Basophils % Metamyelocytes % Myelocytes % Promyelocytes % Absolute Neutrophils Absolute Lymphocytes Absolute Monocytes Absolute Eosinophils Absolute Basophils Nucleated RBCs Differential Comment Other Cell Type RBC Morphology Polychromasia Hypochromasia Poikilocytosis Basophilic Stippling Anisocytosis Microcytosis Macrocytosis Spherocytes Target Cells Tear Drop Cells Ovalocytes Stomatocytes [place] Bodies Jordin Cells Acanthocytes (Spur) Schistocytes Sodium Potassium Chloride Carbon Dioxide Anion Gap BUN Creatinine Estimated GFR/1.73 m2 Glucose Calcium Total Bilirubin AST ALT Alkaline Phosphatase Total Protein Albumin TSH Urine Color (Yellow) Yellow Urine Clarity Clear Urine pH (5-8) 6.5 Ur Specific [place] (1.005-1.025) 1.025 Urine Protein (Negative) mg/dL Negative Urine Ketones (Negative) mg/dL Negative Urine Blood (Negative) Small H Urine Nitrite (Negative) Negative Urine Bilirubin (Negative) Negative Urine Urobilinogen (Up TO 0.2) EU/dL 1.0 H Ur Leukocyte Esterase (Negative) Trace H Urine RBC (0-2) 3-5 H Urine WBC (0-5) HPF 5-10 Ur Epithelial Cells (Negative) HPF Moderate Urine Crystals (Negative) HPF Negative Urine Bacteria (Negative) HPF Moderate Urine Casts (Negative) LPF Negative Urine Mucus (Negative) Moderate Urine Other (Negative) Moderate renal Ur Culture Indicated? No/sq. contamination Urine Glucose (Negative) mg/dL Negative Salicylates Urine Opiates Screen (Negative) Negative Urine Methadone Screen (Negative) Negative Acetaminophen Ur Barbiturates Screen (Negative) Negative Ur Tricyclics Screen (Negative) Negative Ur Amphetamines Screen (Negative) Negative U Benzodiazepines Scrn (Negative) Negative Urine Cocaine Screen (Negative) Negative Ur THC Screen (Negative) Negative Ethyl Alcohol POC Urine Test Start: 02/08/19 13:06 Freq: .Urine Test Status: Complete Protocol: Document 02/08/19 13:18 TR (Rec: 02/08/19 13:18 TR [id number]) Test(Urine)-POC POC- Test(urine) Negative POC- Test(urine) Negative
--- NOTE | 2019-02-08 14:56 | NUR.NOTE ---
Nursing Note: Pt resting in stretcher, with mom at bedside. pt continues to be calm and cooperative.
--- NOTE | 2019-02-08 14:58 | NUR.NOTE ---
Nursing Note: pt to be discharged, awaiting paperwork
--- NOTE | 2019-02-08 15:27 | PDOC.MHCN ---
Date of service: 02/08/19 Time of Service: 14:15 Mental Health Crisis Note Presenting Issue How did you arrive at the ED and why did you come: Patient arrived at the ED transported by state police due to home provider not feeling safe to transport her. Patient was throwing rocks at care providers care and punching and hitting provider. Precipitating Factors Patient denies SI/HI, patient denies having hallucinations. Patient was upset about plans with boyfriend being cancled and took it out on her providers. Disposition BEHAVIOR: calm, cooperative EYE CONTACT: good MOOD: positive AFFECT: broad APPETITE: good SLEEP(trouble falling/staying asleep: good Plan Patient will get a ride back to her home with her mother and will stay with Hayley her home provider until 8 pm when Alesha comes in. Patient asked to contact her father to see if she could spend time with him, patients mom will support this conversation. Signature Clinician's Name/Title: Alfredito Gupta Emergency clincian
== END 2019-02-08 15:09 | disposition home or self-care (01) ==
LOC: ER 15:00
PROVIDERS: Emergency Provider Student in an Organized Health Care Education/Training Program; PCP Family Medicine
DX: F41.9 Anxiety disorder, unspecified (principal); S60.812A Abrasion of left wrist, initial encounter; X78.9XXA Intentional self-harm by unspecified sharp object, initial encounter
CPT/HCPCS: 80053; 80307; 99283; 80320; 80329; 81003; 81015; 84443; 85025

== ENCOUNTER 2019-02-11 10:39 | Outpatient (CLI) | payer MEDICAID, SELFPAY ==
[2019-02-11 11:34] LABS: VALPROIC ACID 90.8 ug/mL (50-100)
== END 2019-02-11 10:59 ==
PROVIDERS: PCP Family Medicine; Visit Provider Psychiatry & Neurology Child & Adolescent Psychiatry
DX: F71 Moderate intellectual disabilities (principal); Z51.81 Encounter for therapeutic drug level monitoring; Z79.899 Other long term (current) drug therapy
CPT/HCPCS: 80164; 81003

== ENCOUNTER 2019-02-11 14:25 | Emergency (ER) | payer MEDICAID, SELFPAY ==
[2019-02-11 14:35] VITALS: BP 104/44; PULSE 90; RESP 18; TEMP 36.6; O2SAT 100
--- NOTE | 2019-02-11 15:28 | DI.RAD_ITS ---
SYMPTOM/DIAGNOSIS: 4TH MCP INJURY RIGHT HAND: 02/11 Three views were obtained. No fracture is seen.
--- NOTE | 2019-02-11 16:06 | NUR.NOTE ---
Nursing Note:Patient's mother who is her legal guardian is here in waiting room. Provider and case management to speak with her regarding plan of care.
--- NOTE | 2019-02-11 16:10 | PDOC.ERCMPRO ---
Care Management Progress Note Leela presents to the [facility] Emergency Department for the sixth time in less than a month for ongoing physical aggression, property destruction, threats of self harm, and agitation. Per staff reports, patient at baseline presents as hyper and manic. 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 She was adopted at a young age and moved to the [place], [place] area with her family in 2003. Her mother has responded to the ER and de-escalated Leela and supported her discharging home, during past visits. This time, however Leela's mother Dianne and her [facility] team report Leela is presenting with more concerning behaviors. This reportedly includes hearing the voices of her grandmother and uncle telling her to kill herself. At the [facility] office she was punching things and banging her head off from tables. Leela often presents behaviorally; attempting to meet her needs by escalating and superficial self harm attempts. Her current behaviors are more inline with an internal struggle of which she is unable to control. Her mother attempted to support Leela's regulation by techniques that have been effective in the past such as hugging her and providing deep pressure without good results. [facility] is wanting her head to stop. Dianne reports she requested a gun to blow her head off. Leela recently experienced primary staff changes-notably her terminal operations manager appliance servicer. She resides in her own apartment with time clerk care providers through [facility] (currently 2:1 ratio). In the past, Steph [facility] reports Leela has not been voluntary for placement and does not meet criteria for involuntary. This time, however, Steph reports Leela is voluntary and if this were to change, [facility] would seek involuntary placement. Leela met with her Psychiatrist, Dr. Stark who recommended discontinuing Certraline. No other medication changes were noted. Leela has struggled to regulate since arriving at [facility], she has pulled at her hair and upon arrival was fixated on going to the court house to request a new guardian. She escalated when presented with blue paper clothes due to prior ER visits and is permitted to remain in her own clothing for sensory considerations. She has a zuhair shirt and leggings on as well as her bra and socks. Her significant other, Moe is supportive of her seeking voluntary support and Dianne advocated for Moe to be permitted to call and encourage Leela while awaiting placement. Leela has not attempted to leave her room and is showing good effort at verbalizing her needs. Dianne reports Leela feels dirty and would likely benefit from a shower. She will be permitted comfort bath system as a shower room is unavailable in the ER, if admitted to the 2nd floor, the safety plan will reflect the option of Leela being permitted to shower per staff availability. Safety plan has been established with patient, and care team, to adhere to patient goals, identify restrictions based on behavioral status, address nutrition, and determine allowed personal belongings, tools for hygiene and personal care. Determine level of activity including ambulation, level of supervision, visitors, and determine privileges based on behaviors and level of engagement by pt. Huddle Participants: Melly Mckee; RN, Diana; HP, Steph; HPElisabet; [facility] hops farmworker, Dianne; Mom/Guardian, Diana; Nursing Financial Wellness Coach, and KEVYN Linn. SAFETY PLAN: 1. Will remain on suicide precautions. Leela is reportedly triggered by blue paper clothes from past ER visits and per huddle discussion is permitted to remain in her own clothing, no strings permitted. 2. Will remain in room under direct supervision of one-on-one staff at all times provided by [employer]; ADINA, SHIRA well drill operator rotary drill. 3. May have paper cups, paper plates, finger foods. 4. Follow [facility] Management of the Admitted Behavioral Health Patient policy. 5. Comfort bath system only. If admitted to 2nd floor, Leela may have use of shower room with [facility] staff escort at RN discretion. 6. No personal belongings with exception of clothing listed above. 7. Visitors-Limited to mother/Guardian Dianne, and father, Ruy 8. Tablet, music, warm or weighted blankets permitted as coping mechanisms. If admitted to 2nd floor, Leela is permitted use of television. 9. Bathroom privileges-escort to bathroom at RN discretion. 10. Phone: incoming calls from her Mother Dianne, Father, Ruy and signficant other, Moe Zhang. 11. Due to VOLUNTARY status, if patient wishes to leave [facility], the [facility] hops farmworker must be contacted to re-evaluate patient prior to patient exiting the building. Steph [facility] and Diana [facility] have agreed to keep [facility] team updated with bed availability and placement efforts. Patient is currently voluntarily at [facility] and seeking inpatient admission when a bed becomes available. [facility] Frontline Hay Chopper will continue seeking placement. Please contact the Cfd Engineer Supervisor Drying ([phone]) and [facility] Hay Chopper ([phone]) for any needed changes in the Safety Plan. Safety plan has been provided to interdepartmental care team. - MH Services (Omit if N/A) Current MH Services: Psychiatric Inp (Seeking voluntary placement, Leela is enrolled in [facility] program with time clerk 2:1 support in her home setting. She also has medication management with Psychiatrist; Dr. Forde.)
--- NOTE | 2019-02-11 16:41 | CMPROGNOTE_ITS ---
Care Management Progress Note Leela presents to the [facility] Emergency Department for the sixth time in less than a month for ongoing physical aggression, property destruction, threats of self harm, and agitation. Per staff reports, patient at baseline presents as hyper and manic. 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 She was adopted at a young age and moved to the [place], [place] area with her family in 2003. Her mother has responded to the ER and de-escalated Leela and supported her discharging home, during past visits. This time, however Leela's mother Dianne and her [facility] team report Leela is presenting with more concerning behaviors. This reportedly includes hearing the voices of her grandmother and uncle telling her to kill herself. At the [facility] office she was punching things and banging her head off from tables. Leela often presents behaviorally; attempting to meet her needs by escalating and superficial self harm attempts. Her current behaviors are more inline with an internal struggle of which she is unable to control. Her mother attempted to support Leela's regulation by techniques that have been effective in the past such as hugging her and providing deep pressure without good results. [facility] is wanting her head to stop. Dianne reports she requested a gun to blow her head off. Leela recently experienced primary staff changes-notably her break up worker seasonal customer service associate. She resides in her own apartment with full service supervisor care providers through [facility] (currently 2:1 ratio). In the past, Steph [facility] reports Leela has not been voluntary for placement and does not meet criteria for involuntary. This time, however, Steph reports Leela is voluntary and if this were to change, [facility] would seek involuntary placement. Leela met with her Psychiatrist, Dr. Stark who recommended discontinuing Certraline. No other medication changes were noted. Leela has struggled to regulate since arriving at [facility], she has pulled at her hair and upon arrival was fixated on going to the court house to request a new guardian. She escalated when presented with blue paper clothes due to prior ER visits and is permitted to remain in her own clothing for sensory considerations. She has a zuhair shirt and leggings on as well as her bra and socks. Her significant other, Moe is supportive of her seeking voluntary support and Dianne advocated for Moe to be permitted to call and encourage Leela while awaiting placement. Leela has not attempted to leave her room and is showing good effort at verbalizing her needs. Dianne reports Leela feels dirty and would likely benefit from a shower. She will be permitted comfort bath system as a shower room is unavailable in the ER, if admitted to the 2nd floor, the safety plan will reflect the option of Leela being permitted to shower per staff availability. Safety plan has been established with patient, and care team, to adhere to patient goals, identify restrictions based on behavioral status, address nutrition, and determine allowed personal belongings, tools for hygiene and personal care. Determine level of activity including ambulation, level of supervision, visitors, and determine privileges based on behaviors and level of engagement by pt. Huddle Participants: Melly Mckee; RN, Diana; HP, Steph; HPElisabet; [facility] disc pad knockout worker, Dianne; Mom/Guardian, Diana; Nursing Terrazzo Worker Apprentice, and KEVYN Linn. SAFETY PLAN: 1. Will remain on suicide precautions. Leela is reportedly triggered by blue paper clothes from past ER visits and per huddle discussion is permitted to remain in her own clothing, no strings permitted. 2. Will remain in room under direct supervision of one-on-one staff at all times provided by [employer]; ADINA, SHIRA wad impregnator. 3. May have paper cups, paper plates, finger foods. 4. Follow [facility] Management of the Admitted Behavioral Health Patient policy. 5. Comfort bath system only. If admitted to 2nd floor, Leela may have use of shower room with [facility] staff escort at RN discretion. 6. No personal belongings with exception of clothing listed above. 7. Visitors-Limited to mother/Guardian Dianne, and father, Ruy 8. Tablet, music, warm or weighted blankets permitted as coping mechanisms. If admitted to 2nd floor, Leela is permitted use of television. 9. Bathroom privileges-escort to bathroom at RN discretion. 10. Phone: incoming calls from her Mother Dianne, Father, Ruy and signficant other, Moe Zhang. 11. Due to VOLUNTARY status, if patient wishes to leave [facility], the [facility] disc pad knockout worker must be contacted to re-evaluate patient prior to patient exiting the building. Steph [facility] and Diana [facility] have agreed to keep [facility] team updated with bed availability and placement efforts. Patient is currently voluntarily at [facility] and seeking inpatient admission when a bed becomes available. [facility] [employer] will continue seeking placement. Please contact the Environmental Planner [employer] ([phone]) and [facility] [employer] ([phone]) for any needed changes in the Safety Plan. Safety plan has been provided to interdepartmental care team. - MH Services (Omit if N/A) Current MH Services: Psychiatric Inp (Seeking voluntary placement, Leela is enrolled in [facility] program with full service supervisor 2:1 support in her home setting. She also has medication management with Psychiatrist; Dr. Forde.)
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
[2019-02-11 17:38] LABS: Abs Immature Grans 0.05 k/cumm (0.0-0.09); Absolute Basophil Count 0.01 k/cumm (0.0-0.2); Absolute Eosinophil Count 0.03 k/cumm (0.0-0.7); Absolute Lymphocyte Count 2.73 k/cumm (1.2-3.4); Absolute Monocyte Count 0.66 k/cumm (0.11-0.7); Absolute Neutrophil Count 5.69 k/cumm (1.2-6.7); Basophils % 0.1; Eosinophils % 0.3; HCT 40.4 % (36.0-46.0); HGB 13.2 g/dL (12.0-15.5); Immature Grans % 0.5; Lymphocytes % 29.8; Mean Corp. HGB Concentration 32.7 g/dL (32.0-36.0); Mean Corpuscular Hemoglobin 28.9 pg (27.0-33.0); Mean Corpuscular Volume 88.4 fL (80-95); Mean Platelet Volume 11.1 fL (8.0-11.0); Monocytes % 7.2; Neutrophils % 62.1; Platelet Count 179 x1000/uL (130-400); RBC 4.57 m/cumm (4.00-5.20); RBC Distribution Width 13.3 % (11.7-14.6); White Blood Cell Count 9.17 k/cumm (4.4-10.8)
[2019-02-11 17:58] LABS: ALT 22 U/L (12-78); AST 15 U/L (15-37); Albumin 3.9 g/dL (3.4-5.0); Alkaline Phosphatase 70 U/L (46-116); Anion Gap 10.3 mmol/L (3-11); BUN 11 mg/dL (7-18); Bilirubin, Total 0.3 mg/dL (0.2-1.0); CO2 28.7 mmol/L (21.0-32.0); CREATININE 0.64 mg/dL (0.55-1.02); Calcium 9.2 mg/dL (8.5-10.1); Chloride 105 mmol/L (98-107); Glucose 99 mg/dL (70-100); Potassium 3.9 mmol/L (3.5-5.1); Sodium 144 mmol/L (136-145); TSH 1.77 uIU/mL (0.358-3.74)
[2019-02-11 17:59] LABS: Salicylate < 2.8 mg/dL (2.8-20.0)
[2019-02-11 18:01] LABS: Acetaminophen < 2 ug/mL (10-30)
[2019-02-11 18:15] LABS: ETHANOL BLOOD < 3.0 mg/dL (<3)
[2019-02-11 18:38] LABS: METHADONE URINE SCREEN Negative (Negative)
[2019-02-11 18:39] LABS: *AMPHETAMINES SCREEN URINE Negative (Negative); *BARBITURATES SCREEN URINE Negative (Negative); *BENZODIAZEPINES SCREEN URINE Negative (Negative); Cannabinoids THC Negative (Negative); Cocaine Screen,Urine Negative (Negative); OPIATES URINE SCREEN Negative (Negative); Tricyclic Antidepressants Negative (Negative)
[2019-02-11 18:40] LABS: Bilirubin Negative (Negative); Blood Small (Negative); Clarity Clear (Clear); Glucose Negative (Negative); Ketones Negative (Negative); Leukocyte Esterase Negative (Negative); Nitrite Negative (Negative)
[2019-02-11 18:46] LABS: Epithelial Cells Rare HPF (Negative); WBC 0-2 HPF (0-5)
[2019-02-11 18:47] LABS: Bacteria Few HPF (Negative); C & S Indicated? No; Crystals Negative HPF (Negative); Mucus Heavy (Negative)
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
--- NOTE | 2019-02-11 19:35 | PDOC.MHCN ---
Date of service: 02/11/19 Time of Service: 19:35 Mental Health Crisis Note Presenting Issue How did you arrive at the ED and why did you come: Leela presents at [facility] after having an emotional outburst at the [facility] office. Precipitating Factors Leela reports hearing voices of her grandmother and uncle telling her that she needs to and come to [facility] to be with her grandmother. She also reportedly asked [facility] staff to get her a gun so she can shoot herself. Leela's behavior has been deteriorating for several weeks with an increased frequency of behavioral outbursts and aggressive behaviors. Disposition BEHAVIOR: Leela is currently cooperative. EYE CONTACT: Good. MOOD: Depressed. AFFECT: Calm. APPETITE: Good. SLEEP(trouble falling/staying asleep: Unknown. Plan Plan is to seek a voluntary hospitalization for mood stabilization. Referrals are faxed to [facility] and [facility] for review. A huddle is done with Manisha Mckee, nursing supervisor doping, and other hospital staff and a care plan is created by [employer], director long term care. Leela will remain at [facility] until a psych placement can be secured for her. Signature Clinician's Name/Title: Diana Sanchez BA [facility] Cnc Applications Engineer
--- NOTE | 2019-02-11 19:44 | PDOC.MHCN_ITS ---
Date of service: 02/11/19 Time of Service: 19:35 Mental Health Crisis Note Presenting Issue How did you arrive at the ED and why did you come: Leela presents at [facility] after having an emotional outburst at the [facility] office. Precipitating Factors Leela reports hearing voices of her grandmother and uncle telling her that she needs to and come to [facility] to be with her grandmother. She also reportedly asked [facility] staff to get her a gun so she can shoot herself. Leela's behavior has been deteriorating for several weeks with an increased frequency of behavioral outbursts and aggressive behaviors. Disposition BEHAVIOR: Leela is currently cooperative. EYE CONTACT: Good. MOOD: Depressed. AFFECT: Calm. APPETITE: Good. SLEEP(trouble falling/staying asleep: Unknown. Plan Plan is to seek a voluntary hospitalization for mood stabilization. Referrals are faxed to [facility] and [facility] for review. A huddle is done with Manisha Mckee, nursing seed production field supervisor, and other hospital staff and a care plan is created by [employer], manager long term care. Leela will remain at [facility] until a psych placement can be secured for her. Signature Clinician's Name/Title: Diana Sanchez BA [facility] Pbx Repairer
[2019-02-11] MEDS: Divalproex 500 MG TABEC PO (22:22)
[2019-02-11] MEDS: risperiDONE 1 MG TAB PO (22:22)
--- NOTE | 2019-02-12 07:08 | NUR.NOTE ---
Nursing Note: report given to Jameel EDWARD
[2019-02-12] MEDS: Divalproex 500 MG TABEC PO (08:20)
[2019-02-12] MEDS: guanFACINE 1 MG TAB 2 MG PO (08:21)
[2019-02-12] MEDS: risperiDONE 1 MG TAB PO (08:21)
[2019-02-12 10:30] VITALS: BP 104/65; PULSE 83; RESP 16; TEMP 36.5; O2SAT 97
--- NOTE | 2019-02-12 11:01 | PDOC.MHCN ---
Date of service: 02/12/19 Time of Service: 11:02 Mental Health Crisis Note Presenting Issue How did you arrive at the ED and why did you come: Leela remains at the hospital awaiting disposition. She first arrived at [facility] yesterday after becoming agitated and engaging in self-injurious behaviors at [facility]. Precipitating Factors Leela denies SI or HI. She states she became upset yesterday because she wanted to call her boyfriend and she was not allowed to. She also accuses [facility] staff of being disrespectful towards her which increased her anxiety. Disposition BEHAVIOR: Cooperative. EYE CONTACT: Good. MOOD: Calm, back to baseline. AFFECT: Congruent to mood. APPETITE: Good. SLEEP(trouble falling/staying asleep: Good. Plan Leela refuses a voluntary hospitalization and she does not meet criteria for an involuntary placement at this time. She, therefore, is returning home on a safety plan. Her [facility] team is looking at options available to provide Leela with better support in the community and to hopefully avoid future outbursts. Dr. Schmidt is consulted with this plan and he is in agreement to Leela being discharged home. Signature Clinician's Name/Title: Diana Sanchez BA, [facility] Nail Assembly Machine Operator
--- NOTE | 2019-02-12 11:09 | PDOC.MHCN_ITS ---
Date of service: 02/12/19 Time of Service: 11:02 Mental Health Crisis Note Presenting Issue How did you arrive at the ED and why did you come: Leela remains at the hospital awaiting disposition. She first arrived at [facility] yesterday after becoming agitated and engaging in self-injurious behaviors at [facility]. Precipitating Factors Leela denies SI or HI. She states she became upset yesterday because she wanted to call her boyfriend and she was not allowed to. She also accuses [facility] staff of being disrespectful towards her which increased her anxiety. Disposition BEHAVIOR: Cooperative. EYE CONTACT: Good. MOOD: Calm, back to baseline. AFFECT: Congruent to mood. APPETITE: Good. SLEEP(trouble falling/staying asleep: Good. Plan Leela refuses a voluntary hospitalization and she does not meet criteria for an involuntary placement at this time. She, therefore, is returning home on a safety plan. Her [facility] team is looking at options available to provide Leela with better support in the community and to hopefully avoid future outbursts. Dr. Schmidt is consulted with this plan and he is in agreement to Leela being discharged home. Signature Clinician's Name/Title: Diana Sanchez BA, [facility] Television Antenna Installer
[2019-02-12 11:47] VITALS: BP 104/65; PULSE 83; RESP 16; TEMP 36.5; O2SAT 97
== END 2019-02-12 11:47 | disposition home or self-care (01) ==
PROVIDERS: Nurse Practitioner Family; Emergency Provider Emergency Medicine; PCP Family Medicine
DX: F23 Brief psychotic disorder (principal); R44.0 Auditory hallucinations; R45.851 Suicidal ideations; M25.541 Pain in joints of right hand; W22.09XA Striking against other stationary object, initial encounter; F71 Moderate intellectual disabilities; Z51.81 Encounter for therapeutic drug level monitoring; Z79.899 Other long term (current) drug therapy
CPT/HCPCS: 36415; 80053; 80307; 81025; 99285; 73130; 80164; 80320; 80329; 81003; 81015; 84443; 85025; 99284

== ENCOUNTER 2019-02-25 10:25 | Emergency (ER) | payer MEDICAID, SELFPAY ==
[2019-02-25 10:31] VITALS: BP 116/66; PULSE 58; RESP 16; TEMP 36.7; O2SAT 100
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
== END 2019-02-25 12:00 | disposition home or self-care (01) ==
PROVIDERS: Emergency Provider Emergency Medicine; PCP Family Medicine
DX: R45.6 Violent behavior (principal); F31.9 Bipolar disorder, unspecified
CPT/HCPCS: 99285; 99284

== ENCOUNTER 2019-03-14 15:35 | Emergency (ER) | payer MEDICAID, SELFPAY ==
--- NOTE | 2019-03-14 15:40 | NUR.NOTE ---
Nursing Note: pt states that approximately 2 months ago she kicked something heavy and since then it been hurting pt states that she was here 1 month ago for the same problem however is concerned because it has not resolved PT is a poor historian.
[2019-03-14 15:42] VITALS: BP 119/69; PULSE 72; RESP 16; TEMP 36.9; O2SAT 98
--- NOTE | 2019-03-14 15:52 | DI.RAD_ITS ---
SYMPTOM/DIAGNOSIS : PAIN S/P FALL RIGHT ANKLE: Three views. No acute fracture or dislocation is present.
--- NOTE | 2019-03-14 16:00 | ED.GENADUL_ITS ---
Discharge Plan Disposition Patient Disposition: HOME Condition: Stable Discharge Details Chief Complaint: Orthopedic Clinical Impression: Right ankle sprain Primary Care Provider: Debbie Hickey ED Provider: Malcom Lux Home Meds and New Rx's Prescriptions: No Action Nexplanon 68 mg implant 1 implant SBD ONCE Qty: 1 RF: 0 divalproex 500 MG tablet,delayed release (DR/EC) 500 mg PO BID RF: 0 risperidone [Risperdal] 1 MG tablet 1 mg PO BID RF: 0 atomoxetine [Strattera] 40 MG capsule 60 mg PO DAILY RF: 0 guanfacine 2 MG tablet extended release 24 hr 2 mg PO DAILY RF: 0 Discharge Instructions Instructions: Ankle Sprain (ED) Additional Instructions: if pain continues in a week see your primary care provider return to the emergency department if you have new symptoms such as fevers or chills or feel more ill Medical Decision Making 28 yo female comes in with right ankle pain. She states it originally hurt when she fell months ago but never fully felt better then tripped yesterday and has lateral malleolus pain so came here. She has full rom of the ankle with 5/5 strength with plantar and dorsiflexion. Intact sensastion and pulses. Has point tenderness over the lateral malleolus so will xray to eval for fx though I suspect sprain . xray negative on my read, will have her f/u with pcp if pain continues in a week Differential Diagnosis sprain, strain, fracture, dislocation Imaging Data Radiologic Study: Attestation: I personally reviewed and interpreted this imaging study as follows: Imaging: X-Ray My impression: no acute findings HPI General Mode of arrival: ambulatory . Date/Time Provider Initiated Documentation: 03/14/19 15:49 . Limitations to Documentation: no limitations . Information obtained by: patient . History of Present Illness 28 year old F presents to the emergency department with the chief complaint of right ankle pain, described as moderate, Patient started experiencing this week(s) (2) and it has been constant. Rest improves symptom(s), Movement worsens symptoms . Patient notes no other symptoms.. Patient did receive the following treatments prior to arrival, none Related Data Home Medications Medication Instructions Recorded Confirmed atomoxetine [Strattera] 60 mg PO DAILY 01/27/18 03/14/19 divalproex 500 mg PO BID 01/27/18 03/14/19 guanfacine 2 mg PO DAILY 01/27/18 03/14/19 risperidone [Risperdal] 1 mg PO BID 01/27/18 03/14/19 etonogestrel 68 mg subdermal 1 implant SBD ONCE #1 each 01/16/19 03/14/19 implant Previous Rx's Medication Instructions Recorded etonogestrel 68 mg subdermal 1 implant SBD ONCE #1 each 01/16/19 implant Allergies Allergy/AdvReac Type Severity Reaction Status Date / Time No Known Allergies Allergy Unverified 03/14/19 15:43 General Stated Complaint: Orthopedic GREGORIA: 3 Review of Systems Review of Systems All systems reviewed & are unremarkable except as noted in HPI and below Constitutional Denies chills, Denies fever(s) and Denies weakness Cardiovascular Denies chest pain and Denies dyspnea Respiratory Denies cough and Denies dyspnea Gastrointestinal Denies abdominal pain, Denies nausea and Denies vomiting Neurologic Denies weakness PFSH Social History Smoking/Tobacco Use Status: Never Alcohol Intake: never Drug use: Never Substance use type: does not use Do you feel safe at home: No Do you feel safe in your relationship?: No Female Reproductive History Menstrual control method: pills and implanted (Nexplanon implanted by Isa Lux NP PPH=[id number] EXP=05/28/2021) Exam Const General: no acute distress Orientation: alert HENMT Head: normal to inspection Ears: external ears normal General nose exam: external nose normal Mouth: moist mucous membranes Eyes General: appearance normal, both eyes and all related structures Neck Neck: normal visual inspection Resp Effort & Inspection: normal respiratory effort and able to speak in complete sentences Cardio Rate: regular rate Skin General skin exam: no rashes or lesions noted Neuro General: alert and oriented x3 Extrem General: normal to inspection Psych Mental Status: mental status grossly normal Course Vital Signs Temperature 36.9 C 03/14/19 15:42 Pulse 72 03/14/19 15:42 Respiratory Rate 16 03/14/19 15:42 Blood Pressure 119/69 03/14/19 15:42 Pulse Oximetry 98 03/14/19 15:42 Temperature 36.9 C 03/14/19 15:42 Temperature Source Skin 03/14/19 15:42 Pulse 72 03/14/19 15:42 Respiratory Rate 16 03/14/19 15:42 Respiratory Effort 03/14/19 15:44 Blood Pressure 119/69 03/14/19 15:42 Blood Pressure Position Sitting 03/14/19 15:42 Pulse Oximetry 98 03/14/19 15:42 Oxygen Delivery Method Room Air 03/14/19 15:42 Oxygen Flow Rate 0 03/14/19 15:42 Pain Level 7 03/14/19 15:42
[2019-03-14 16:25] VITALS: BP 119/69; PULSE 72; RESP 16; TEMP 36.9; O2SAT 98
--- NOTE | 2019-03-14 16:39 | DI.VRAD_ITS ---
EXAM: XR Right Ankle EXAM DATE/TIME: 03/14/2019 3:53 PM CLINICAL HISTORY: 28 years old, female; Other: Pain S/P fall TECHNIQUE: Imaging protocol: XR Right ankle. Views: 3 or more views. COMPARISON: CR XR ANKLE RT COMPLETE 01/12/2019 6:00 PM FINDINGS: The bony structures are in anatomic alignment. No fracture is present. No radiopaque foreign body is identified. The joint spaces are well maintained. IMPRESSION: No evidence of acute bony abnormality. Dictated and Authenticated by: Zack Tyson MD. Ordering:SOLE العراقي MD
== END 2019-03-14 16:35 | disposition home or self-care (01) ==
PROVIDERS: Emergency Provider Emergency Medicine; PCP Family Medicine
DX: S93.421A Sprain of deltoid ligament of right ankle, initial encounter (principal); W01.0XXA Fall on same level from slipping, tripping and stumbling without subsequent striking against object, initial encounter
CPT/HCPCS: 99283; 73610; 99282; E0114; L1902

== ENCOUNTER 2019-03-18 16:55 | Emergency (ER) | payer MEDICAID, SELFPAY ==
[2019-03-18 16:59] VITALS: BP 110/68; PULSE 75; RESP 16; TEMP 37; O2SAT 100
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
--- NOTE | 2019-03-18 17:31 | DI.VRAD_ITS ---
EXAM: XR Left Foot Complete EXAM DATE/TIME: 03/18/2019 5:08 PM CLINICAL HISTORY: 28 years old, female; Foot; Left; Patient HX: PT unsure about source of pain. Painful since 730 am TECHNIQUE: Imaging protocol: XR Left foot. Views: 3 or more views. COMPARISON: CR LEFT FOOT COMPLETE 01/27/2018 4:26 PM FINDINGS: Bones/joints: Normal. Soft tissues: Normal. IMPRESSION: No acute findings. Dictated and Authenticated by: Danika Doran MD. Ordering:SOLE العراقي MD
== END 2019-03-18 17:47 | disposition home or self-care (01) ==
PROVIDERS: Emergency Provider Emergency Medicine; PCP Family Medicine
DX: S90.32XA Contusion of left foot, initial encounter (principal); V03.00XA Pedestrian on foot injured in collision with car, pick-up truck or van in nontraffic accident, initial encounter; S97.82XA Crushing injury of left foot, initial encounter
CPT/HCPCS: 99283; 73630; 99282

== ENCOUNTER 2019-05-06 13:15 | Emergency (ER) | payer MEDICAID, SELFPAY ==
[2019-05-06 13:17] VITALS: BP 120/73; PULSE 82; RESP 20; TEMP 36.6; O2SAT 99
--- NOTE | 2019-05-06 14:12 | ED.GENADUL_ITS ---
Discharge Plan Disposition Patient Disposition: HOME Condition: Good Discharge Details Chief Complaint: Sorethroat Clinical Impression: URI (upper respiratory infection), Nasal sinus congestion Primary Care Provider: Debbie Hickey ED Provider: Rosendo Ellison Home Meds and New Rx's Prescriptions: New loratadine 10 mg capsule 10 mg PO DAILY Qty: 10 RF: 0 No Action divalproex 500 MG tablet,delayed release (DR/EC) 500 mg PO BID RF: 0 risperidone [Risperdal] 1 MG tablet 1 mg PO BID RF: 0 atomoxetine [Strattera] 40 MG capsule 60 mg PO DAILY RF: 0 guanfacine 2 MG tablet extended release 24 hr 2 mg PO DAILY RF: 0 Discharge Instructions Instructions: Upper Respiratory Infection (ED) Additional Instructions: You have a viral upper respiratory infection. Although you show no signs of infection in your left ear you do have some congestion. Please take the loratadine as directed. Your strep test was negative. For your sore throat please take 2 tablespoons of honey every 4 hours, gargle with salt water. If you notice any worsening of your symptoms, or any new symptoms such as vomiting, diarrhea, fever, chills, shortness of breath, chest pain, numbness, weakness, or fainting , please return immediately to the emergency department for reevaluation. Please follow up with your primary care provider as soon as possible for reassessment and reevaluation. As always, it was a pleasure participating in your medical care today. Referrals: Debbie Hickey [Primary Care Provider] - Medical Decision Making This is a 28-year-old female who presents with 2 to 3 days of sore throat, she has had a mild cough. She denies any significant tobacco abuse. Physical exam demonstrates minimal cobblestoning in the posterior oropharynx, tonsils are unremarkable, no evidence of peritonsillar abscess. Ears demonstrate a small amount of serous fluid behind the left ear, no evidence of purulent otitis media. Signs and symptoms are clinically consistent with viral upper respiratory infection, questionable mild bronchitis. Lungs are clear, no clinical evidence of pneumonia with normal vital signs, normal pulmonary exam. Patient will be discharged with loratadine, recommend fluids, rest, and close follow-up. I have extensively reviewed the treatment plan and discharge instructions with the patient. I have addressed all patient concerns at this time. The patient was made aware of what symptoms to monitor for that would warrant a return to the emergency department. Discussed the plan with the patient, they demonstrate verbal understanding and agreement with our assessment and plan at this time. HPI General Date/Time Provider Initiated Documentation: 05/06/19 14:07 . HPI Narrative: This is a 28-year-old female who presents with symptoms of sore throat for the last 3 days. She has had a mild associated cough. She denies any fever, chills, chest pain, shortness of breath, difficulty swallowing, severe fatigue, numbness tingling weakness. She denies any headache or neck pain. She has no other complaints at this time. She denies any other significant sick contacts. She denies any new medications. No other modifying factors. Related Data Home Medications Medication Instructions Recorded Confirmed atomoxetine [Strattera] 60 mg PO DAILY 01/27/18 05/06/19 divalproex 500 mg PO BID 01/27/18 05/06/19 guanfacine 2 mg PO DAILY 01/27/18 05/06/19 risperidone [Risperdal] 1 mg PO BID 01/27/18 05/06/19 loratadine 10 mg PO DAILY #10 cap 05/06/19 Previous Rx's Medication Instructions Recorded loratadine 10 mg PO DAILY #10 cap 05/06/19 Allergies Allergy/AdvReac Type Severity Reaction Status Date / Time No Known Allergies Allergy Unverified 05/06/19 13:19 General Stated Complaint: Sorethroat GREGORIA: 3 Review of Systems Review of Systems ROS Unobtainable: All systems reviewed & are unremarkable except as noted in HPI and below PFSH Social History Smoking/Tobacco Use Status: Never Alcohol Intake: never Drug use: Never Substance use type: does not use Do you feel safe at home: No Do you feel safe in your relationship?: No Female Reproductive History Menstrual control method: pills and implanted (Nexplanon implanted by Isa Lux NP HDR=[id number] EXP=05/28/2021) Exam Narrative Exam Narrative: 1.Const: Well-nourished, Well-developed, appearing stated age 2.Eyes: PERRL, no conjunctival injection, and symmetrical lids. 3.ENT: Atraumatic external nose and ears. Moist MM. Neck: Symmetric, trachea midline, No thyromegaly. No significant erythema in the posterior oropharynx, no tonsillar exudates, no cervical lymphadenopathy, patient demonstrates good movement of cervical neck. There is no nuchal rigidity, no nuchal tenderness. Patient is able to flex the neck without any difficulty or significant pain. Negative Kernig's and Brudzinski sign. Right tympanic membrane is normal, left tympanic membrane demonstrates mild evidence of effusion, nonpurulent, it is clear. There is some old scarring. No erythema or edema. No evidence of otitis media. No evidence of otitis externa. 4.CVS: +S1/S2, No murmurs or gallops. Peripheral pulses 2+ and equal in all extremities. Brisk capillary refill in all extremities. 5.RESP: Unlabored respiratory effort. Clear to auscultation bilaterally. No wheezes rales or rhonchi 6.GI: Soft, Nontender/Nondistended, No hepatosplenomegaly. No guarding or rebound. 7.MSK: Normocephalic/Atraumatic, Extremities w/o deformity or ttp No cyanosis or clubbing, Normal movement of all extremities 8.Skin: Warm, Dry. No rashes or lesions. 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 Sensation grossly intact, no focal neurologic deficits. 10.Psych: (AAO) x3. Appropriate mood and affect Course Vital Signs Vital signs: Vital Signs Temperature 36.6 C 05/06/19 13:17 Pulse 82 05/06/19 13:17 Respiratory Rate 20 05/06/19 13:17 Blood Pressure 120/73 05/06/19 13:17 Pulse Oximetry 99 05/06/19 13:17 Temperature 36.6 C 05/06/19 13:17 Temperature Source Temporal Artery Scan 05/06/19 13:17 Pulse 82 05/06/19 13:17 Respiratory Rate 20 05/06/19 13:17 Respiratory Effort Non-Labored 05/06/19 13:19 Blood Pressure 120/73 05/06/19 13:17 Blood Pressure Position Sitting 05/06/19 13:17 Pulse Oximetry 99 05/06/19 13:17 Oxygen Delivery Method Room Air 05/06/19 13:17 Oxygen Flow Rate 0 05/06/19 13:17 Pain Level 8 05/06/19 13:17 Lab/Test Results Lab/Test Results: 05/06/19 13:25 Pharynx Streptococcus Screen (VENKATA) - Pending POC Strep Test-PIETRO(Rapid) Start: 05/06/19 13:21 Freq: Status: Active Protocol: Document 05/06/19 13:32 CL (Rec: 05/06/19 13:32 CL [email or web address]) Strep test-PIETRO(Rapid)-POC POC-Strep test-PIETRO (Rapid) Negative POC-Strep test-PIETRO (Rapid) Negative
== END 2019-05-06 14:47 | disposition home or self-care (01) ==
PROVIDERS: Emergency Provider Student in an Organized Health Care Education/Training Program; PCP Family Medicine
DX: J06.9 Acute upper respiratory infection, unspecified (principal); R09.81 Nasal congestion; J02.8 Acute pharyngitis due to other specified organisms
CPT/HCPCS: 87880; 99283; 87081

== ENCOUNTER 2019-08-25 11:29 | Emergency (ER) | payer MEDICAID, SELFPAY ==
[2019-08-25 11:34] VITALS: BP 127/67; PULSE 79; RESP 16; TEMP 36.4; O2SAT 99
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
--- NOTE | 2019-08-25 12:16 | DI.RAD_ITS ---
EXAM: XR HAND RT COMPLETE INDICATION: hand trauma. COMPARISON: No exams were available for comparison TECHNIQUE: 2D digital imaging was performed. FINDINGS: No fracture or dislocation is seen. IMPRESSION: Negative right hand.
== END 2019-08-25 12:51 | disposition home or self-care (01) ==
PROVIDERS: Emergency Provider Emergency Medicine; PCP Family Medicine
DX: S60.221A Contusion of right hand, initial encounter (principal); W25.XXXA Contact with sharp glass, initial encounter; R21 Rash and other nonspecific skin eruption; F31.9 Bipolar disorder, unspecified
CPT/HCPCS: 29125; 81025; 99283; 73130; L3908

== ENCOUNTER 2019-09-12 19:06 | Emergency (ER) | payer MEDICAID, SELFPAY ==
[2019-09-12 19:18] VITALS: BP 135/90; PULSE 84; RESP 16; TEMP 36.4; O2SAT 100
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
--- NOTE | 2019-09-12 19:40 | DI.RAD_ITS ---
EXAM: XR HAND RT COMPLETE INDICATION: punched a door. COMPARISON: XR HAND RT COMPLETE from 08/25/2019 TECHNIQUE: 2D digital imaging was performed. FINDINGS: There is soft tissue swelling dorsally at the metacarpal heads. No fracture or dislocation is seen.
--- NOTE | 2019-09-12 19:58 | DI.VRAD_ITS ---
PROCEDURE INFORMATION: Exam: XR Right Hand Exam date and time: 09/12/2019 7:25 PM Age: 29 years old Clinical indication: Pain; Hand; Right; Patient HX: Punched a door TECHNIQUE: Imaging protocol: XR Right hand. Views: 3 or more views. COMPARISON: CR XR HAND RT COMPLETE 08/25/2019 12:16 PM FINDINGS: Bones/joints: No suspicious osseous lytic or blastic lesion. No discrete linear fracture lucency or displaced fracture. No joint dislocation. Soft tissues: Normal. IMPRESSION: No acute findings. Dictated and Authenticated by: Dean Wolf MD. Ordering:GABBY Mena MD
== END 2019-09-12 21:10 | disposition home or self-care (01) ==
PROVIDERS: Emergency Provider Physician Assistant; PCP Family Medicine
DX: S60.221A Contusion of right hand, initial encounter (principal); W22.09XA Striking against other stationary object, initial encounter
CPT/HCPCS: 99283; 73130

== ENCOUNTER 2019-12-31 19:13 | Emergency (ER) | payer MEDICAID, SELFPAY ==
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
[2019-12-31 19:26] VITALS: BP 128/80; PULSE 99; RESP 16; TEMP 37.9; O2SAT 99
--- NOTE | 2019-12-31 19:36 | NUR.NOTE ---
Nursing Note: Crisis care team Uma phone number is [phone], and Adelia Guan [phone]. They will be waiting in vehicle in ER parking lot. Guardian,Dianne (in demographics) to be called upon completion of Zoom meeting call screening with mental health. Leela requesting Aedlia to come in- provider aware and will assess.
[2019-12-31 20:46] VITALS: PULSE 90; RESP 16; TEMP 36.5; O2SAT 99
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
== END 2019-12-31 21:05 | disposition home or self-care (01) ==
PROVIDERS: Emergency Provider Physician Assistant; PCP Family Medicine
DX: F91.8 Other conduct disorders (principal)
CPT/HCPCS: 99285; 99283

== ENCOUNTER 2020-04-06 14:55 | Emergency (ER) | payer MEDICAID, SELFPAY ==
[2020-04-06 15:04] VITALS: BP 137/96; PULSE 107; RESP 16; TEMP 37.1; O2SAT 98
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
[2020-04-06] MEDS: LORazepam 0.5 MG TAB PO (15:40)
[2020-04-06 15:48] LABS: Bilirubin Negative (Negative); Blood Moderate (Negative); Clarity Clear (Clear); Glucose Negative (Negative); Ketones 15 mg/dL (Negative); Leukocyte Esterase Trace (Negative); Nitrite Negative (Negative); Specific Gravity >= 1.030 (1.005-1.025)
[2020-04-06 15:58] LABS: Bacteria Rare HPF (Negative); C & S Indicated? Yes; Crystals Negative HPF (Negative); Epithelial Cells Many HPF (Negative); Mucus Heavy (Negative); RBC 20-50 HPF (0-2)
[2020-04-06 16:00] LABS: *AMPHETAMINES SCREEN URINE Negative (Negative); *BARBITURATES SCREEN URINE Negative (Negative); *BENZODIAZEPINES SCREEN URINE Negative (Negative); Cannabinoids THC Negative (Negative); Cocaine Screen,Urine Negative (Negative); METHADONE URINE SCREEN Negative (Negative); OPIATES URINE SCREEN Negative (Negative)
[2020-04-06 16:04] LABS: Tricyclic Antidepressants Negative (Negative)
--- NOTE | 2020-04-06 16:12 | CMSP_ITS ---
- If Service Date Differs Date of service: 04/06/20 Time of Service: 16:12 Care Management Safety Plan Leela is being evaluated in the ED r/t her behaviors prior to arrival per report. She will have a CPSO the interim safety plan will be implemented while awaiting mental health assessment. Leela is an IDDS client of [facility] and will need to have a plan to return to the community. Patient is well knows to [facility] she receives fulltime services through [facility]. She is developmentally delayed with an IQ of 49. She also has a history of aggressive behaviors, bipolar type 1, attachment disorder, PTSD and self- harm behaviors. Please note safety plan below to guide patient care while awaiting further assessment in the ED. SAFETY PLAN: 1. Will remain on SI/HI precautions and in paper clothes. 2. Will remain in room under direct supervision of one-on-one staff at all times provided by DAINA, PRIVATE DUTY AIDE administrator pesticide. 3. May have paper cups, plates, finger foods as well as a cardboard spoon with which to eat meals. 4. Follow [facility] Management of the Admitted Behavioral Health Patient policy. 5. Comfort bath system only. 6. No personal belongings 7. Community care providers 8. Phone contact none 9. Patient receives services in the community and will need to return to the [facility] with IDDS supports and safe discharge plan. Leela will be evaluated by [facility] and a safe discharge plan to be determined through IDDS program. CM will continue to support team.
== END 2020-04-06 17:05 | disposition home or self-care (01) ==
PROVIDERS: Registered Nurse Emergency; Emergency Provider Physician Assistant; PCP Family Medicine
DX: N39.0 Urinary tract infection, site not specified (principal); F41.9 Anxiety disorder, unspecified; F91.1 Conduct disorder, childhood-onset type; R45.1 Restlessness and agitation
CPT/HCPCS: 80307; 81025; 99283; 81003; 81015; 87086

== ENCOUNTER 2021-12-18 18:41 | Outpatient (REF) | payer MEDICAID, SELFPAY | END 2021-12-18 18:42 | disposition home or self-care (01) | LOC: LBN 18:41 | PROVIDERS: PCP Family Medicine; Visit Provider Nurse Practitioner Family | DX: R30.0 Dysuria (principal) | CPT/HCPCS: 87086 ==

== ENCOUNTER 2022-05-14 13:46 | Outpatient (REF) | payer MEDICAID, SELFPAY | END 2022-05-14 13:47 | disposition home or self-care (01) | LOC: LBN 13:46 | PROVIDERS: PCP Family Medicine; Visit Provider Obstetrics & Gynecology | DX: R39.89 Other symptoms and signs involving the genitourinary system (principal) | CPT/HCPCS: 87086 ==